=== PATIENT | male | born 1940 | race Caucasian/White ===

== ENCOUNTER → 2017-02-20 | Outpatient (CLI) | payer MEDICARE, OTHER, SELFPAY | PROVIDERS: Visit Provider Internal Medicine | DX: R06.02 Shortness of breath (principal); F17.200 Nicotine dependence, unspecified, uncomplicated | CPT/HCPCS: 71250; 94060; 94620; 94640; 94726; 94729 ==

== ENCOUNTER → 2018-04-29 13:16 | Outpatient (CLI) | payer MEDICARE, OTHER, SELFPAY ==
[2018-04-29 13:42] LABS: Blood Urea Nitrogen 13 mg/dL (7-18); Creatinine,Serum 1.37 mg/dL (0.70-1.30); Estimated Glomerular Filt Rate 50 ml/min (>60); GFR (African American) 61 ML/MIN (>60)
--- NOTE | 2018-04-29 13:50 | CT_ITS ---
CT chest wo/w con HISTORY: ITS.REASON: WEIGHT LOSS,H/O LUNG CA ORDERING PHYSICIAN: Brian Kaba MD PATIENT AGE: 77 years COMPARISON: 02/20/2017 Technique: Axial images obtained following the administration without and with 75 mL of Optiray 350 . Sagittal, and coronal reformatted images are also generated and reviewed. All CT scans at the facility use one or more dose reduction, viz: automated exposure control, ma/kV adjustment per patient size (including targeted exams where dose is matched to indication, i.e. head), or iterative reconstruction technique. FINDINGS: There has been a prior CABG. No mediastinal or hilar mass or adenopathy. Normal heart size without evidence of pericardial effusion. Atheromatous changes involve the thoracic aorta. No evidence of aneurysm or dissection. No central pulmonary embolus There are centrilobular and panlobular emphysematous changes. There are scattered fibrotic changes. There is a spiculated parenchymal opacity in the left apex with associated pleural thickening. This is not significantly changed measuring approximately 15 x 10 mm. No central lesions are evident. No enhancing abnormalities apparent. This nodule has been stable since 01/18/2016.. There is hyperinflation with attenuation of the peripheral pulmonary vessels consistent with obstructive chronic bronchitis. No bony destructive process is evident. Upper abdominal images show prior cholecystectomy. IMPRESSION: 1. Overall no significant change from 02/20/2017 and 01/18/2016. 2. Centrilobular emphysema with COPD. 3. Stable 15 mm left apical nodule
== END ==
PROVIDERS: Visit Provider Internal Medicine Adolescent Medicine
DX: R53.83 Other fatigue (principal); R63.4 Abnormal weight loss; I10 Essential (primary) hypertension; Z85.118 Personal history of other malignant neoplasm of bronchus and lung
CPT/HCPCS: 36415; 71270; 82565; 84520; Q9967

== ENCOUNTER → 2018-05-10 08:52 | Outpatient (CLI) | payer MEDICARE, OTHER, SELFPAY ==
[2018-05-10 10:28] LABS: Basophils # 0.1 K/mm3 (0-0.2); Basophils % 0.6 % (0.1-2.0); Eosinophils # 0.4 K/mm3 (0.0-0.4); Eosinophils % 4.7 % (0.1-12.0); Hematocrit 47.6 % (42.0-52.0); Hemoglobin 15.7 g/dL (14.1-18.0); Lymphocytes # 2.9 K/mm3 (0.7-4.5); Lymphocytes % 36.5 % (10-50); Mean Corpuscular Hemoglobin 31.6 pg (27.0-31.2); Mean Corpuscular Volume 95.6 fl (80-94); Mean Platelet Volume 8.9 fl (7.4-10.4); Monocytes # 0.5 K/mm3 (0.1-1.0); Monocytes % 6.1 % (1.7-9.3); Neutrophils # 4.1 K/mm3 (1.8-7.8); Platelet Count 262 K/mm3 (142-424); Red Blood Count 4.98 M/mm3 (4.60-6.20); Red Cell Distribution Width 13.8 % (11.5-17.5)
[2018-05-10 10:44] LABS: Alanine Aminotransferase 16 U/L (12-78); Albumin Level 3.8 gm/dL (3.4-5.0); Alkaline Phosphatase 118 U/L (46-116); Anion Gap 13.6 mEq/L (5-15); Aspartate Amino Transferase 17 U/L (15-37); Bilirubin,Total 0.5 mg/dL (0.2-1.0); Blood Urea Nitrogen 16 mg/dL (7-18); Calcium 10.3 mg/dL (8.5-10.1); Carbon Dioxide 30 mmol/L (21.0-32.0); Chloride 102 mmol/L (98-107); Chol/HDL Ratio 4.1 (1-3.5); Cholesterol 186 mg/dL (140-200); Creatinine,Serum 1.29 mg/dL (0.70-1.30); Estimated Glomerular Filt Rate 54 ml/min (>60); GFR (African American) 65 ML/MIN (>60); Globulin 3.9 gm/dl (1.3-3.2); Glucose 91 mg/dL (74-106); HDL Cholesterol 45 mg/dL (27-67); LDL Cholesterol 111 mg/dL (0-130); Potassium 4.6 mmoL/L (3.5-5.1); Sodium 141 mmol/L (136-145); Thyroid Stimulating Hormone 2.59 uIU/ml (0.358-3.740); Total Protein,Serum 7.7 gm/dL (6.4-8.2); Triglycerides 151 mg/dL (30-200); VLDL Cholesterol 30 mg/dL (0-40)
== END ==
PROVIDERS: Visit Provider Internal Medicine Adolescent Medicine
DX: R53.83 Other fatigue (principal); E78.5 Hyperlipidemia, unspecified; I10 Essential (primary) hypertension
CPT/HCPCS: 36415; 80053; 80061; 84443; 85025

== ENCOUNTER → 2018-05-11 08:57 | Outpatient (CLI) | payer MEDICARE, OTHER, SELFPAY ==
[2018-05-12 15:16] LABS: Calcium, Ionized 5.8 mg/dL (4.5-5.6)
[2018-05-13 09:20] LABS: Parathyroid Hormone Intact 24 pg/mL (15-65)
[2018-05-25 08:48] LABS: Miscellaneous Test COMMENT:
== END ==
PROVIDERS: Visit Provider Internal Medicine Adolescent Medicine
DX: E83.52 Hypercalcemia (principal)
CPT/HCPCS: 36415; 82330; 83970

== ENCOUNTER → 2019-07-18 13:57 | Outpatient (CLI) | payer MEDICARE, OTHER, SELFPAY ==
--- NOTE | 2019-07-18 14:16 | US_ITS ---
PROCEDURE: US ABD. AORTA SCREENING CLINICAL INDICATION: ABDOMINAL ANEURYSM COMPARISON: ABDPELW CT ABD PELVIS W/ CONTRAST from 01/18/2016 FINDINGS: There is fusiform dilatation the mid abdominal aorta measuring to 4.3 cm in maximum AP dimension. There is a mild amount mural thrombus. Proximal common iliacs are unremarkable. IMPRESSION: 4.3 cm fusiform abdominal aortic aneurysm Dictated by: Андрей Cavazos MD 07/18/2019 14:49 Electronically signed by Андрей Cavazos MD in [facility] 07/18/2019 14:49
[2019-07-18 14:38] LABS: Basophils # 0.1 K/mm3 (0-0.2); Basophils % 0.9 % (0.1-2.0); Eosinophils # 0.4 K/mm3 (0.0-0.4); Eosinophils % 4.8 % (0.1-12.0); Hematocrit 46.7 % (42.0-52.0); Hemoglobin 15.2 g/dL (14.1-18.0); Lymphocytes # 2.4 K/mm3 (0.7-4.5); Lymphocytes % 33.5 % (10-50); Mean Corpuscular HGB Conc 32.5 g/dL (31.8-35.4); Mean Corpuscular Hemoglobin 30.6 pg (27.0-31.2); Mean Platelet Volume 8.4 fl (7.4-10.4); Monocytes # 0.5 K/mm3 (0.1-1.0); Neutrophils # 3.9 K/mm3 (1.8-7.8); Neutrophils % 53.8 % (37.0-80.0); Platelet Count 250 K/mm3 (142-424); Red Blood Count 4.96 M/mm3 (4.60-6.20); Red Cell Distribution Width 13.5 % (11.5-17.5); White Blood Count 7.3 K/mm3 (4.8-10.8)
[2019-07-18 15:21] LABS: Chloride 102 mmol/L (98-107); Sodium 136 mmol/L (136-145)
[2019-07-18 15:24] LABS: Alanine Aminotransferase 9 U/L (12-78); Albumin Level 4.1 g/dl (3.5-5.0); Albumin/Globulin Ratio 1.4 (1.1-1.8); Alkaline Phosphatase 103 U/L (38-126); Aspartate Amino Transferase 21 U/L (17-59); Bilirubin,Total 0.3 mg/dl (0.2-1.3); Blood Urea Nitrogen 15 mg/dl (9-20); Calcium 9.9 mg/dl (8.4-10.2); Carbon Dioxide 30 mmol/L (22.0-30.0); Estimated Glomerular Filt Rate 53 ml/min (>60); GFR (African American) 64 ML/MIN (>60); Glucose 87 mg/dl (74-100); Magnesium 2.1 mg/dl (1.6-2.3); Total Protein,Serum 7.1 g/dl (6.3-8.2)
[2019-07-18 16:52] LABS: Thyroid Stimulating Hormone 1.72 uIU/mL (0.465-4.68)
== END ==
PROVIDERS: Visit Provider Internal Medicine Adolescent Medicine
DX: R53.83 Other fatigue (principal); I71.4 Abdominal aortic aneurysm, without rupture
CPT/HCPCS: 36415; 76705; 80053; 83735; 84443; 85025

== ENCOUNTER → 2019-09-09 13:10 | Outpatient (CLI) | payer MEDICARE, OTHER, SELFPAY ==
[2019-09-09 14:43] LABS: Blood Urea Nitrogen 24 mg/dl (9-20); Estimated Glomerular Filt Rate 64 ml/min (>60); GFR (African American) 78 ML/MIN (>60)
== END ==
PROVIDERS: Visit Provider Internal Medicine Adolescent Medicine
DX: Z01.818 Encounter for other preprocedural examination (principal)
CPT/HCPCS: 36415; 82565; 84520

== ENCOUNTER → 2019-09-12 12:29 | Outpatient (CLI) | payer MEDICARE, OTHER, SELFPAY ==
--- NOTE | 2019-09-12 12:37 | CT_ITS ---
PROCEDURE: CT CHEST W CON CLINCAL INDICATION: HX OF MALIGNANT NEOPLASM OF LUNG Follow-up lung cancer COMPARISON: ABDPELW CT ABD PELVIS W/ CONTRAST from 01/18/[address] chest wo/w con from 04/29/2018 the dimensions of the aneurysm or therefore not available from this exam the TECHNIQUE: IV Contrast: 75ml Optiray 350 Axial images obtained with sagittal and coronal reformats. All CT scans at the facility use one or more dose reduction, viz: automated exposure control, ma/kV adjustment per patient size (including targeted exams where dose is matched to indication, i.e. head), or iterative reconstruction technique. FINDINGS: Prior CABG. No mediastinal or hilar mass or adenopathy. Changes of COPD with diffuse centrilobular and paraseptal emphysema. The there is a spiculated nodule in the left upper lobe posteriorly subpleural in nature with minimal central cavitation. The nodule measures 16 mm not significantly changed. There are fibrotic changes in the lung bases with scattered areas of scarring. There is some debris within the trachea. Right hemidiaphragm is slightly elevated. Degenerative changes are present in the thoracic spine with no acute bony findings. 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 There is a fusiform abdominal aortic aneurysm. Only the superior aspect of the aneurysm is imaged. IMPRESSION: Overall stable CT appearance of the chest with severe COPD/is centrilobular and paraseptal emphysema. No change in the spiculated left apical nodule Dictated by: Андрей Cavazos MD 09/13/2019 13:13 Electronically signed by Андрей Cavazos MD in [facility] 09/13/2019 13:13
== END ==
PROVIDERS: PCP Internal Medicine Adolescent Medicine; Visit Provider Internal Medicine Adolescent Medicine
DX: Z85.118 Personal history of other malignant neoplasm of bronchus and lung (principal)
CPT/HCPCS: 71260; Q9967

== ENCOUNTER → 2019-09-29 08:35 | Outpatient (CLI) | payer MEDICARE, OTHER, SELFPAY ==
--- NOTE | 2019-09-29 08:47 | MR_ITS ---
PROCEDURE: MR HEAD/BRAIN WO/W CON CLINICAL INDICATION: VERTIGO Weakness, history of lung cancer COMPARISON: No exams were available for comparison TECHNIQUE: Routine multiplanar multi echo sequences are performed without gadolinium enhancement. FINDINGS: No midline shift, mass effect, intracranial hemorrhage, or hydrocephalus is evident. There is generalized atrophy with scattered areas of increased periventricular and subcortical T2 signal intensity consistent with ischemic gliotic change from microvascular disease. There is a small focus of increased diffusion signal measuring approximately 4 mm in the deep white matter of the left frontal parietal junction suggesting a small area of infarction. There is some slight increased diffusion signal in the left white matter in the periventricular region also suggesting a small area of white matter infarction. These are isointense on the diffusion signal in may be subacute in nature. Some of these areas may also be related to T2 shine through. The cerebellopontine angle has an unremarkable appearance. There is a small area of encephalomalacia in the right cerebellar hemisphere inferiorly suggesting an old small infarction. No enhancing lesions. No midline shift or mass effect. Encephalomalacia changes are present in the basal ganglia on both sides consistent with old small bilateral lacunar infarctions. This is slightly more extensive on the right. The pituitary and optic chiasm and craniocervical junction have an unremarkable appearance. There is an area of encephalomalacia in the anterior left aspect of the body of the corpus callosum hypointense on T1 and slightly hyperintense on T2 suggesting an old area of lacunar infarction. Mucosal thickening involves the ethmoid sinuses and there is a small amount of fluid in the mastoid sinuses. IMPRESSION: 1. Atrophy with chronic ischemic gliotic changes as detailed above with suspected 2 small areas of subacute white matter infarction in the left frontal parietal and left parietal region. 2. Mild sinus disease Dictated by: Андрей Cavazos MD 09/30/2019 09:16 Electronically signed by Андрей Cavazos MD in [facility] 09/30/2019 09:16
[2019-09-29 08:57] LABS: Blood Urea Nitrogen 11 mg/dl (9-20); Estimated Glomerular Filt Rate 58 ml/min (>60); GFR (African American) 70 ML/MIN (>60)
== END ==
PROVIDERS: PCP Internal Medicine Adolescent Medicine; Visit Provider Internal Medicine Adolescent Medicine
DX: R42 Dizziness and giddiness (principal)
CPT/HCPCS: 36415; 70553; 82565; 84520; A9576

== ENCOUNTER → 2019-10-31 12:34 | Outpatient (CLI) | payer MEDICARE, OTHER, SELFPAY ==
--- NOTE | 2019-10-31 | US_ITS ---
APPROVED REPORT Exam Type: Ankle to Brachial Index Process Steward: RT Tonya(R) Indications Claudication: Risk Factors Cardiac Disease Current Smoker Pressures/Indices Right Indices Left Indices Brachial 159.00 mmHg Brachial 159.00 mmHg Low Thigh 159.00 mmHg 1.00 Low Thigh 132.00 mmHg 0.83 Calf 159.00 mmHg 1.00 Calf 97.00 mmHg 0.61 Ankle(PT) 154.00 mmHg 0.97 Ankle(PT) 97.00 mmHg 0.61 Ankle(DP) 151.00 mmHg 0.95 Ankle(DP) 90.00 mmHg 0.57 Digit 68.00 mmHg 0.43 Digit 64.00 mmHg 0.40 Findings R AGUSTIN 1.0 L AGUSTIN 0.4 R TBI 0.4 L TBI 0.4 ABNORMAL WAVEFORMS AND DIMINISHED PULSES ON LEFT Conclusion R AGUSTIN 1.0 L AGUSTIN 0.4 R TBI 0.4 L TBI 0.4 ABNORMAL WAVEFORMS AND DIMINISHED PULSES ON LEFT Severe arterial disease on the left with bilat small vessel disease Electronically signed by : Андрей Cavazos MD 10/31/2019 17:02:20
== END ==
PROVIDERS: PCP Internal Medicine Adolescent Medicine; Visit Provider Internal Medicine Adolescent Medicine
DX: I73.9 Peripheral vascular disease, unspecified (principal)
CPT/HCPCS: 93923

== ENCOUNTER 2020-06-04 20:49 | Emergency (ER) | payer MEDICARE, OTHER, SELFPAY ==
[2020-06-04 20:49] VITALS: BP 159/94; PULSE 89; RESP 16; TEMP 36.9; O2SAT 99; BMI 22.3
[2020-06-04 21:06] VITALS: BP 157/90; PULSE 70; RESP 16; O2SAT 98
--- NOTE | 2020-06-04 21:06 | CT_ITS ---
PROCEDURE: CT ABDOMEN PELVIS W CON CLINICAL INDICATION: abd pain Constipation, history of lung cancer COMPARISON: CT ABDPELW CT ABD PELVIS W/ CONTRAST from 01/18/2016 TECHNIQUE: IV Contrast: 75ML Isovue 370 Oral Contrast None Axial images obtained with sagittal and coronal reformats. All CT scans at the facility use one or more dose reduction, viz: automated exposure control, ma/kV adjustment per patient size (including targeted exams where dose is matched to indication, i.e. head), or iterative reconstruction technique. FINDINGS: LOWER THORAX: COPD with scattered areas of scarring. ABDOMEN & PELVIS: Prior cholecystectomy. No focal liver lesion. The spleen, adrenal glands, and pancreas have an unremarkable appearance. No renal or ureteral calculi. There are small bilateral renal cysts. No hydronephrosis. There is a fusiform infrarenal abdominal aortic aneurysm measuring 5.3 cm in maximum transverse dimension. This includes a saccular component along the left lateral aspect which measures approximately 2 cm in with. The saccular component has developed since the previous exam of 01/18/2016 concerning for impending rupture. No acute retroperitoneal hemorrhage evident at this time. The aorta measures 4.9 cm transverse without including the saccular component. There is a mild amount of intramural thrombus. There is rectal fecal impaction with the rectum measuring 7.6 cm transverse. There is large amount of stool burden in the descending and sigmoid colon and rectosigmoid region. Air-fluid levels are present within the cecum ascending colon and transverse colon. There is mild colonic distension of the ascending colon measuring up to 8 cm transverse. High-grade stenosis is present involving the ostium of the celiac artery. This stenosis is at least 90 percent with possible short segment occlusion. At least 50 percent stenosis of the proximal SMA. No acute bony findings. IMPRESSION: 1. Constipation with rectal fecal impaction. 2. Infrarenal fusiform abdominal aortic aneurysm measuring 4.9 cm with moderate intramural thrombus with an associated saccular component along the left lateral aspect at approximately 2 cm. This is concerning for impending rupture. No acute retroperitoneal hemorrhage evident at this time. 3. 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 At least 50 percent stenosis of the proximal SMA Dictated by: Андрей Cvaazos MD 06/05/2020 06:14 Андрей Cavazos MD in [facility] 06/05/2020 06:14
[2020-06-04 21:32] LABS: Basophils # 0.1 K/mm3 (0-0.2); Basophils % 0.6 % (0.1-2.0); Eosinophils # 0.3 K/mm3 (0.0-0.4); Eosinophils % 3.3 % (0.1-12.0); Hematocrit 48.1 % (42.0-52.0); Hemoglobin 15.4 g/dL (14.1-18.0); Lymphocytes # 1.3 K/mm3 (0.7-4.5); Lymphocytes % 15.2 % (10-50); Mean Corpuscular Hemoglobin 31.4 pg (27.0-31.2); Mean Corpuscular Volume 98.3 fl (80-94); Mean Platelet Volume 8.5 fl (7.4-10.4); Monocytes # 0.4 K/mm3 (0.1-1.0); Monocytes % 4.1 % (1.7-9.3); Neutrophils # 6.5 K/mm3 (1.8-7.8); Neutrophils % 76.9 % (37.0-80.0); Platelet Count 236 K/mm3 (142-424); Red Blood Count 4.89 M/mm3 (4.60-6.20); Red Cell Distribution Width 13.6 % (11.5-17.5); White Blood Count 8.4 K/mm3 (4.8-10.8)
[2020-06-04 21:34] LABS: Chloride 104 mmol/L (98-107)
[2020-06-04 21:35] LABS: Potassium 4.3 mmoL/L (3.5-5.1); Sodium 140 mmol/L (136-145)
[2020-06-04 21:37] LABS: Alanine Aminotransferase 44 U/L (12-78); Aspartate Amino Transferase 56 U/L (17-59); Blood Urea Nitrogen 16 mg/dl (9-20); Creatinine Clearance Estimated 50 mL/min (50-200); Estimated Glomerular Filt Rate 58 ml/min (>60); GFR (African American) 70 ML/MIN (>60)
[2020-06-04 21:38] LABS: Albumin Level 4.5 g/dl (3.5-5.0); Albumin/Globulin Ratio 1.5 (1.1-1.8); Alkaline Phosphatase 118 U/L (38-126); Anion Gap 10.3 mEq/L (5-15); Bilirubin,Total 0.4 mg/dl (0.2-1.3); Calcium 10.4 mg/dl (8.4-10.2); Carbon Dioxide 30 mmol/L (22.0-30.0); Glucose 146 mg/dl (74-100); Total Protein,Serum 7.5 g/dl (6.3-8.2)
[2020-06-04 21:43] LABS: C-Reactive Protein 2.4 mg/L (0-4)
[2020-06-04 21:57] LABS: Procalcitonin 0.085 ng/mL (0.0-2.0)
--- NOTE | 2020-06-04 22:15 | HMH.EDNVD ---
ED Disposition Clinical Impression: Abdominal aortic aneurysm (AAA) 3.0 cm to 5.5 cm in diameter in male, Fecal impaction in rectum Disposition: Xfer Short-Term Hosp Condition on Discharge: Serious Instructions: DI for Acute Abdominal Pain Referrals: Brian Kaba MD [Primary Care Provider] - - Critical Care Critical Care Time: No Attestation: On 06/04/20, the high probability of a clinically significant, sudden or life threatening deterioration of the following system(s) required my full and direct attention, intervention and personal management. The time I documented below is in addition to time spent performing reported procedures but includes the following listed in this critical care notation. Medical Decision Making - Medical Records Medical records reviewed: Yes: I reviewed the patient's medical records. - Dante Inquiry Pt receiving controlled substance: No Vital Signs: 06/04/20 20:49 06/04/20 21:06 Temperature 98.4 F Temperature Source Oral Pulse Rate 70 Pulse Rate [Right] 89 Respiratory Rate 16 16 Blood Pressure 157/90 H Blood Pressure [Right Arm] 159/94 H Blood Pressure Mean [Right Arm] 115 Blood Pressure Source Manual Cuff/ Doppler Blood Pressure Position Sitting 02 Sat by Pulse Oximetry 99 98 Oxygen Delivery Method Room Air - Lab Data Lab results reviewed: Yes: I reviewed the patient's lab results. Lab Results 06/04/20 21:12: WBC 8.4, RBC 4.89, Hgb 15.4, Hct 48.1, MCV 98.3 H, MCH 31.4 H, MCHC 32.0, RDW 13.6, Plt Count 236, MPV 8.5, Neut % (Auto) 76.9, Lymph % (Auto) 15.2, Lewis % (Auto) 4.1, Eos % (Auto) 3.3, Baso % (Auto) 0.6, Neut # (Auto) 6.5, Lymph # (Auto) 1.3, Lewis # (Auto) 0.4, Eos # (Auto) 0.3, Baso # (Auto) 0.1, ESR 24 H 06/04/20 21:12: Sodium 140, Potassium 4.3, Chloride 104, Carbon Dioxide 30, Anion Gap 10.3, BUN 16, Creatinine 1.20, Estimated Creat Clear 50, Estimated GFR 58 L, Est GFR ( Amer) 70, Glucose 146 H, Calcium 10.4 H, Total Bilirubin 0.4, AST 56, ALT 44, Alkaline Phosphatase 118, C-Reactive Protein 2.4, Total Protein 7.5, Albumin 4.5, Globulin 3.0, Albumin/Globulin Ratio 1.5, Procalcitonin 0.085 06/04/20 21:20: TSH 3.66, Thyroxine (T4) 10.4 Result diagrams: 06/04/20 21:12 06/04/20 21:12 Orders (Tests/Meds): ED MEDICATIONS Generic Name Dose Route Start Last Admin Trade Name Freq PRN Reason Stop Dose Admin Sodium Chloride 1,000 mls @ 999 mls/hr 06/04/20 21:15 06/04/20 21:28 Sod Chlor 0.9% 1000ml Bag IV 06/04/20 22:15 999 mls/hr .Q1H1M PEDRO Administration Discontinued Medications Generic Name Dose Route Start Last Admin Trade Name Freq PRN Reason Stop Dose Admin Iopamidol 75 ml 06/04/20 23:47 06/04/20 23:48 Iopamidol-370 (76%);100ml Bottle IV 06/04/20 23:48 75 ml ONCE ONE Administration Ketorolac Tromethamine 15 mg 06/04/20 21:23 06/04/20 21:28 Ketorolac 30mg/Ml Vial IV 06/04/20 21:24 15 mg ONCE ONE Administration Ondansetron HCl 4 mg 06/04/20 21:23 06/04/20 21:28 Ondansetron 4mg/2ml Vial IV 06/04/20 21:24 4 mg ONCE ONE Administration Sodium Chloride 10 ml 06/04/20 23:47 06/04/20 23:48 Sodium Chloride 0.9% 10ml Syr (Rad Only) IV 06/04/20 23:48 10 ml ONCE ONE Administration ORDERS Category Date Time Status CT abdomen pelvis w con Stat Cat Scan 06/04/20 21:06 Taken Urinalysis and Microscopic Stat Lab 06/04/20 21:15 Ordered - CT Data CT Scan: Abdomen, Pelvis Time Received: 00:[address] Reviewed: Yes: I have viewed the radiologist's interpretation Preliminary Findings: Abnormal (see report ) - Physician Consults Physician Consulted: [facility] - dr rutledge and [facility]- surg Reason -: Transfer to another facilty Medical Decision Narrative: enlarging aaa with not tender on palpation but positive bruit and enlarged and saccular element - will need eval by c-v Nausea/Vomiting/Diarrhea HPI - General Chief complaint: Abdominal Pain Stated complaint: constipation Time Seen by
[2020-06-04 22:28] LABS: Erythrocyte Sedimentation Rate 24 mm/hr (0-20)
--- NOTE | 2020-06-04 22:32 | PC.NURSE ---
speaking gamaliel BELLE
[2020-06-04 23:29] LABS: T4 (Thyroxine) 10.4 ug/dl (5.53-11.0)
[2020-06-04 23:42] LABS: Thyroid Stimulating Hormone 3.66 uIU/mL (0.465-4.68)
--- NOTE | 2020-06-04 23:57 | PC.NURSE ---
Calling [facility]
--- NOTE | 2020-06-05 00:04 | PC.NURSE ---
speaking with [facility]
--- NOTE | 2020-06-05 00:20 | PC.NURSE ---
Notified Alda of transfer
[2020-06-05 00:47] VITALS: BP 128/83; PULSE 87; RESP 16; TEMP 36.8; O2SAT 98
== END 2020-06-05 00:49 | disposition short-term general hospital (02) ==
PROVIDERS: Emergency Provider Emergency Medicine; PCP Internal Medicine Adolescent Medicine
DX: K56.41 Fecal impaction (principal); I71.4 Abdominal aortic aneurysm, without rupture; K59.00 Constipation, unspecified; F17.210 Nicotine dependence, cigarettes, uncomplicated
CPT/HCPCS: 74177; 80053; 84145; 84436; 84443; 85025; 85651; 86140; 96375; 99283; J2405; Q9967

== ENCOUNTER → 2020-06-27 11:09 | Outpatient (CLI) | payer MEDICARE, OTHER, SELFPAY ==
--- NOTE | 2020-06-27 11:15 | CA_ITS ---
APPROVED REPORT Spring Former Hand: Amy Bertrand RVT Laterality: Bilateral Study Quality: Good Indications: left carotid bruit Risk Factors Hypertension: TIA/CVA History Hyperlipidemia Smoking Surgery/Intervention Endarterectomy: right left Doppler Spectral Velocity Analysis ECA (R) 111.10/10.90 cm/s ECA (L) 193.50/33.30 cm/s dICA (R) 98.90/39.80 cm/s dICA (L) 61.00/23.10 cm/s Maged (R) 94.40/37.20 cm/s Maged (L) 210.30/76.60 cm/s pICA (R) 80.90/31.50 cm/s pICA (L) 143.40/20.00 cm/s dCCA (R) 85.30/25.40 cm/s dCCA (L) 77.10/17.30 cm/s pCCA (R) 101.10/25.70 cm/s pCCA (L) 98.20/19.30 cm/s Vert (R) 63.60/18.60 cm/s Vert (L) 70.60/7.10 cm/s ICA/CCA 1.16 ICA/CCA 2.73 Findings Study suggests no evidence of stenosis of the right internal cartoid artery. 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 Antegrade flow seen bilateral vertebral arteries. Conclusion Study suggests no evidence of stenosis of the right internal cartoid artery. 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 Antegrade flow seen bilateral vertebral arteries. Electronically signed by : Андрей Cavazos MD 06/27/2020 15:33:08
--- NOTE | 2020-06-27 11:15 | CA_ITS ---
APPROVED REPORT EXAM: Comprehensive 2D, Doppler, and color-flow Echocardiogram Agricultural Production Engineer: LAUREL Grey, RVS Ht: 5 ft 11 in Wt: 138lbs BSA: 1.80 BP: 136/75 mmHg Indications: CAD-CaBG, AAA, Lung CA, TIA, stent Echo Enhancing Agent Comments: Limited acoustic windows due to extreme body habitus 2D Dimensions IVSd 0.97 cm LVEF (Visual) 66.40 % PWd 0.87 cm LA Volume 23.10 mL LVDd 4.39 cm LA Volume Index 12.80 mL/m2 (M/F) 16-34 LVDs 2.79 cm Aortic Root 3.20 cm Left Atrium 3.48 cm LVOT 1.94 cm (M/F) 1.5-2.5 M-Mode Dimensions EPSs 0.17 cm TAPSE 1.45 (<1.7) LV Diastology E Decel Time 257.00 (160-240 msec) E/A Ratio 0.82 MED E' 6.50 (< 7 cm/sec) MED A' 10.60 cm/s E'/MED E' Ratio 8.23 (>14) LAT E' 6.60 (<10 cm/sec) LAT A' 10.50 cm/s E/LAT E' Ratio 8.11 (>14) Aortic Valve LVOT Max 81.00 (70-110 cm/s) LVOT VTI 16.07 cm AoV Peak Abel. 124.00 (50-130 cm/s) AO Peak GR. 6.20 mmHg AO Mean GR. 3.10 (<5 mmHg) AO VTI 22.08 (18-25 cm) ADAMS (VTI) 2.15 (2.5-4.5 cm2) Mitral Valve MV A Velocity 65.00 (40-130 cm/s) E/A Ratio 0.82 MV Decel. Time 257.00 (160-240 ms) Pulmonary Valve PV Peak Velocity 75.00 (50-150 cm/s) Tricuspid Valve TR P. Velocity 271.00 cm/s RAP Estimate 10.00 mmHg RVSP 39.40 mmHg Left Ventricle Left atrium is moderately enlarged, left ventricle is normal size, mild concentric left ventricular hypertrophy, visually estimated ejection fraction 50%, there is moderate hypokinesis involving distal septum and apical wall, grade 1 diastolic dysfunction seen without tissue Doppler evidence of raise left atrial pressure. Right Ventricle Right atrium and right ventricle are normal size and contractility. Aortic Valve Aortic valve is minimally thickened and fibrosed, there is no aortic stenosis or aortic insufficiency. Mitral Valve Mitral valve leaflets are minimally thickened, there is mild mitral regurgitation Tricuspid Valve Tricuspid grossly normal, there is trace tricuspid regurgitation. Pulmonic Valve Pulmonic valve is poorly visualized. Great Vessels Aortic root is normal size. Pericardium No significant pericardial effusion noted. Conclusion 1. Moderately enlarged left atrium, normal left ventricular size, mild concentric left ventricular hypertrophy, visually estimated ejection fraction 50% with segmental wall motion abnormalities described above, grade 1 diastolic dysfunction seen without tissue Doppler evidence of raise left atrial pressure. 2. Mild mitral and trace tricuspid regurgitation. 3. No significant pericardial effusion noted. Electronically signed by : Ruperto Baeza, 06/28/2020 15:15:29
--- NOTE | 2020-06-27 11:29 | NM_ITS ---
APPROVED REPORT Exam: Nuclear Stress Test Indication: CAD, CABG, HTN, HYPERLIPIDEMIA, SOB Patient Location: Outpatient Stress Tech: Neva Hernandez [place] Tech:TEVIN Falcon RT(R)(N) Ht: 5 ft 9 in Wt: 135 lbs HR: 77 bpm BP: 158/77 mmHg BSA: 1.75 m2 BMI: 19.9 History: CAD, CABG, HTN, HYPERLIPIDEMIA, SOB Procedure: Patient received a 0.4 mg of intravenous Lexiscan, resting heart rate 77 bpm, resting blood pressure 158/98 mmHg, with Lexiscan maximum heart rate achived was 93 bpm which is Less than 85 % of the maximum predicted heart rate and blood pressure was 138/83 mmHg. With Lexiscan, patient denied any complaint of chest pain. OCC PAC, RARE PVC Electrocardiogram Resting electrocardiogram showed sinus rhythm, with Lexiscan there is less than 1.[address] segment depression noted from the baseline EKG. The EKG portion of the Lexiscan is nondiagnostic. Cardiac Stress and Resting SPECT Images: Cardiac Stress and Resting SPECT images were obtained using technetium 99m Myoview 32.4 mCi stress and 10.23 mCi at rest. Gated SPECT for analysis of segmental wall motion and calculation of the ejection fraction also done, prone images were also obtained. Cardiac stress and resting SPECT images show a small to moderate sized area of fixed defect involving the distal anterior apical and apical wall consistent with area of prior nontransmural myocardial scarring without significant shauna-infarct ischemia. Computer derived ejection fraction is 49% with moderate distal anterior and apical wall hypokinesis. Right ventricle is normal size and contractility. Conclusion: 1. The EKG portion of the Lexiscan is nondiagnostic. 2. Scintigraphic evidence of nontransmural myocardial scarring involving the distal anterior apical wall without significant shauna-infarct ischemia, computer derived ejection fraction is 49% with moderate distal anterior and apical wall hypokinesis, right ventricle is normal size and contractility. 3. Abnormal Lexiscan Myoview study. Electronically signed by : Ruperto Baeza, 06/29/2020 10:10:34
--- NOTE | 2020-06-27 13:55 | CA_ITS ---
APPROVED REPORT Exam: Pharmacologic Technologist: Neva Hernandez, Ht: 5 ft 11 in Wt: 138 lbs BSA: 1.80 m2 HR: 77 bpm BP: 158/98 mmHg Indications: SOA Medical History Medications: Amlodipine,,,,, Omeprazole,,,,, Aspirin,,,,, Atorvastatin,,,,, Tramadol,,,,, Vitamin B Complex,,,,, VitD3,,,,, CiLostazol,,,,, Stress Test Details Test: LEXISCAN HR Resting HR: 79 bpm Max Heart Rate (APMHR): 139.990393 bpm Max HR Achieved: 96 bpm Target HR (85% APMHR): 118.004218 bpm % of APMHR: 69.06 Recovery HR: 91 bpm BP Resting BP: 158/98 mmHg Max BP: 161/90 mmHg Recovery BP: 160.0/82.0 mmHg ECG Resting ECG: NSR, small inferolateral Q waves, Left atrial enlargement, early repolarization changes. Clinical Exercise duration: 04:11 min Highest Stage Achieved: Stress ECG Conclusion Symptoms: SOA, stomach discomfort. Arrhythmias/Ectopy: Occ PAC, rare PVC. ST-T Changes: No significant changes. Conclusion: Unremarkable Lexiscan stress. Myoview images reported separately. Test Summary REST 03:54 . . 79 . 158/ 98 . . Stage 1 . . . . . . . Myoview Injected Stage 1 01:00 . . 81 . . . . Stage 2 01:00 . . 94 . 138/ 83 . . Stage 3 01:00 . . 94 . 141/ 85 . . Stage 4 01:00 . . 94 . 161/ 90 . . Stage 4 01:11 . . 93 . 161/ 90 . Stop exercise at 04:11 RECOVERY 01:00 . . 93 . . . . RECOVERY 02:00 . . 91 . 151/ 88 . . RECOVERY 03:00 . . 91 . 160/ 82 . . RECOVERY 03:21 . . 91 . 160/ 82 . . Electronically signed by : Ruperto Baeza, 06/28/2020 11:03:14
== END ==
PROVIDERS: PCP Internal Medicine Adolescent Medicine; Visit Provider Nurse Practitioner Family
DX: I65.23 Occlusion and stenosis of bilateral carotid arteries (principal); R09.89 Other specified symptoms and signs involving the circulatory and respiratory systems; Z98.890 Other specified postprocedural states; E78.5 Hyperlipidemia, unspecified; F17.200 Nicotine dependence, unspecified, uncomplicated; I10 Essential (primary) hypertension; I25.10 Atherosclerotic heart disease of native coronary artery without angina pectoris; I71.4 Abdominal aortic aneurysm, without rupture; I73.9 Peripheral vascular disease, unspecified; I77.4 Celiac artery compression syndrome; K55.1 Chronic vascular disorders of intestine; R63.4 Abnormal weight loss; Z85.118 Personal history of other malignant neoplasm of bronchus and lung; Z86.73 Personal history of transient ischemic attack (TIA), and cerebral infarction without residual deficits; Z95.1 Presence of aortocoronary bypass graft; Z95.5 Presence of coronary angioplasty implant and graft; R06.00 Dyspnea, unspecified
CPT/HCPCS: 78452; 93017; 93306; 93880; A9502; J2785

== ENCOUNTER → 2020-07-09 10:38 | Outpatient (CLI) | payer MEDICARE, OTHER, SELFPAY ==
[2020-07-09 11:22] LABS: Basophils # 0.1 K/mm3 (0-0.2); Basophils % 0.6 % (0.1-2.0); Eosinophils # 0.5 K/mm3 (0.0-0.4); Eosinophils % 5.5 % (0.1-12.0); Hematocrit 43.7 % (42.0-52.0); Hemoglobin 14.5 g/dL (14.1-18.0); Lymphocytes # 2.4 K/mm3 (0.7-4.5); Lymphocytes % 28.6 % (10-50); Mean Corpuscular HGB Conc 33.2 g/dL (31.8-35.4); Mean Corpuscular Hemoglobin 32.5 pg (27.0-31.2); Monocytes # 0.5 K/mm3 (0.1-1.0); Monocytes % 5.6 % (1.7-9.3); Neutrophils % 59.7 % (37.0-80.0); Platelet Count 322 K/mm3 (142-424); Red Blood Count 4.46 M/mm3 (4.60-6.20); Red Cell Distribution Width 13.7 % (11.5-17.5); White Blood Count 8.5 K/mm3 (4.8-10.8)
[2020-07-09 12:04] LABS: Chloride 103 mmol/L (98-107); Potassium 4.5 mmoL/L (3.5-5.1); Sodium 140 mmol/L (136-145)
[2020-07-09 12:07] LABS: Anion Gap 10.5 mEq/L (5-15); Blood Urea Nitrogen 16 mg/dl (9-20); Calcium 10.4 mg/dl (8.4-10.2); Carbon Dioxide 31 mmol/L (22.0-30.0); Estimated Glomerular Filt Rate 64 ml/min (>60); GFR (African American) 78 ML/MIN (>60); Glucose 93 mg/dl (74-100)
== END ==
PROVIDERS: PCP Internal Medicine Adolescent Medicine; Visit Provider Nurse Practitioner Family
DX: I65.23 Occlusion and stenosis of bilateral carotid arteries; Z01.818 Encounter for other preprocedural examination; Z20.822 Contact with and (suspected) exposure to COVID-19; I20.8 Other forms of angina pectoris
CPT/HCPCS: 80048; 85025; U0003

== ENCOUNTER 2020-07-11 08:06 | Day surgery (SDC) | payer MEDICARE, OTHER, SELFPAY ==
[2020-07-11] VITALS (20 sets, daily range): BP systolic 117–163; BP diastolic 72–95; PULSE 60–84; RESP 12–19; TEMP 36.5–36.8; O2SAT 92–100; BMI 19.2
--- NOTE | 2020-07-11 | IR_ITS ---
APPROVED REPORT Patient Location: Outpatient Ore Digger: TEVIN Rothman RT (R) PROCEDURES Left heart catheterization Left ventriculogram Selective coronary angiogram Left internal mammary angiography Selective engagement of the saphenous vein graft to the diagonal artery Selective gating the saphenous vein graft to circumflex artery Selective engagement of the saphenous vein graft to the right coronary Drug-eluting stent deployment to the nondalton circumflex artery Catheter placed in the abdominal aorta Abdominal aortography Repositioning the catheter abdominal aorta Bilateral iliofemoral runoff Stent deployment to the right common iliac artery Stent deployment to the left common iliac artery Stent deployment to the left external iliac artery INDICATION Coronary disease, Angina pectoris, History of coronary bypass surgery, Peripheral artery disease, Abnormal AGUSTIN, [place] class III claudication, Informed consent was obtained prior to the procedure. COMPLICATIONS NONE Estimated Blood Loss: LESS THAN 10 ML TECHNIQUE One percent lidocaine used to anesthetize the right groin. The right femoral artery was accessed via the Seldinger technique and a 5 Stateless sheath was placed in the right femoral artery. A JL 4, JR4 catheter were used to perform left heart catheterization, left ventriculogram selective coronary angiography as well as selective engagement of the 3 vein grafts and the left internal mammary artery. In the diagnostic procedure 5 Stateless sheath exchanged for a 6 Stateless sheath and therapeutic heparin was administered. A JL 3 guide catheter was placed in the left main artery and a Choice PT extra-support wire was placed distally in the circumflex artery. A 2 mm x 12 mm resolute Hinton stent was deployed at 20 mer reducing the severe stenosis to 10%. Excellent angiographic results were obtained. Following this mini exchange techniques were utilized throughout exchange of catheters etc. Pigtail catheter was placed in abdominal aorta and abdominal aortography was performed. The catheter was then repositioned and bilateral iliofemoral angiography with bilateral runoff to the feet was then performed. An 8 mm x 80 mm self-expanding stent was then placed in the right common iliac artery extending back into the right external iliac artery. A 9 mm x 40 mm balloon was used to post dilate. The balloon was deployed at 10 mer giving excellent angiographic results. At this point a rim catheter was advanced into the distal abdominal aorta and the advantage wire was advanced distally into the profunda femoris under fluoroscopic guidance. The plan was to proceed with antegrade stenting of the left common iliac artery. A long destination sheath was then advanced into the right groin and into the abdominal aorta. Unfortunately the sheath moved the stent in a cranial manner into the abdominal aorta. At this point it was decided to proceed with left groin access. 1% lidocaine was used to anesthetize the left groin and the left femoral artery was accessed via the Salinger technique. A 6 Stateless sheath was placed in the left femoral artery. An 8 mm x 80 mm self-expanding stent was deployed in the left common iliac artery. No residual stenosis was present distally therefore an 8 mm x 17 mm balloon mounted stent was deployed at 20 mer to post dilate. Prior to the balloon mounted stent a 9 mm x 40 mm balloon was deployed at 6 mer up and down the left common iliac artery. Post angiography demonstrated the stent in the distal abdominal aorta however there was excellent flow with improved inflow through the bilateral iliac arteries. At this point the apparatus was removed the left groin was reprepped gloves were changed sh
[2020-07-11 14:06] LABS: Microscopic, Urine URINE MICROSCOPIC (MICROSCOPIC)
[2020-07-11 14:10] LABS: Appearance,Urine CLEAR (Clear); Bilirubin,Urine Negative (Negative); Blood, Urine 3+ (Negative); Color,Urine YELLOW (Yellow); Glucose,Urine (UA) Negative (Negative); Ketones,Urine Negative (Negative); Leukocyte Esterase,Urine Negative (Negative); Nitrate,Urine Negative (Negative); Protein,Urine Negative (Negative); Specific Gravity, Urine <= 1.005 (1.005-1.030); Urobilinogen,Urine 0.2 EU/dl (0.2)
[2020-07-11 14:23] LABS: CATHL Activated Clotting Time 172 SEC (74-125)
[2020-07-11 14:24] LABS: CATHL Activated Clotting Time 333 SEC (74-125)
[2020-07-11 14:25] LABS: CATHL Activated Clotting Time 255 SEC (74-125)
--- NOTE | 2020-07-11 18:20 | PC.NURSE ---
Pt alert and oriented and able to make needs known, but does require frequent redirection. Pt has been instructed to lie flat post heart cath to avoid bleeding in marcio groin sites, small amt of blood on L groin site, that is unchanged since coming up from agriculture laboratory technician. No further bleeding noted. Pt verbs understanding, but has got out of bed x 2 and attempted to go to bathroom, stating he has to urinate. This RN explained to pt to continue to lie flat and a catheter is in,when he got up once cath pulled taut. Coello is draining well and urine is light yellow. Bed alarm is on and working for safety. CB in reach. VSS. Mx continues.
[2020-07-12] VITALS: BP 122/52; PULSE 60; PULSE 68; RESP 16; TEMP 36.9; O2SAT 95
[2020-07-12 04:00] VITALS: PULSE 70
[2020-07-12 04:02] VITALS: BP 143/77; PULSE 73; RESP 16; TEMP 36.9
[2020-07-12 05:01] VITALS: BMI 18.2
--- NOTE | 2020-07-12 05:19 | PC.NURSE ---
A&OX4. PT TOLERATING RA WELL. PT HAS HAD NO C/O PAIN OR SOA THIS SHIFT. BILATERAL FEMORAL CATH SITE DX CDI. F/C PRESENT DRAINING BRIGHT YELLOW URINE. PT HAD X1 EPISODE OF DIARRHEA THIS SHIFT. WALKING TO THE BATHROOM WELL WITH X1 ASSIST. PT NSR ON TELE. PT HAS BEEN SLIGHTLY ANXIOUS T/O SHIFT, WORRIED ABOUT HIS AT HOME AND ANXIOUS TO LEAVE. PT RESTING MAJORITY OF SHIFT. VSS WILL CONTINUE TO MONITOR.
[2020-07-12 06:46] LABS: Basophils % 0.4 % (0.1-2.0); Eosinophils # 0.1 K/mm3 (0.0-0.4); Eosinophils % 0.9 % (0.1-12.0); Hematocrit 42.4 % (42.0-52.0); Hemoglobin 13.8 g/dL (14.1-18.0); Lymphocytes # 2.1 K/mm3 (0.7-4.5); Lymphocytes % 17.5 % (10-50); Mean Corpuscular HGB Conc 32.6 g/dL (31.8-35.4); Mean Corpuscular Hemoglobin 31.6 pg (27.0-31.2); Mean Corpuscular Volume 96.9 fl (80-94); Mean Platelet Volume 8.5 fl (7.4-10.4); Monocytes # 0.8 K/mm3 (0.1-1.0); Monocytes % 6.8 % (1.7-9.3); Neutrophils # 8.9 K/mm3 (1.8-7.8); Neutrophils % 74.5 % (37.0-80.0); Platelet Count 282 K/mm3 (142-424); Red Blood Count 4.38 M/mm3 (4.60-6.20); Red Cell Distribution Width 13.6 % (11.5-17.5); White Blood Count 11.9 K/mm3 (4.8-10.8)
[2020-07-12 07:01] LABS: Anion Gap 8.7 mEq/L (5-15); Blood Urea Nitrogen 19 mg/dl (9-20); Calcium 9.8 mg/dl (8.4-10.2); Carbon Dioxide 26 mmol/L (22.0-30.0); Chloride 109 mmol/L (98-107); Creatinine Clearance Estimated 48 mL/min (50-200); Estimated Glomerular Filt Rate 72 ml/min (>60); GFR (African American) 87 ML/MIN (>60); Glucose 105 mg/dl (74-100); Potassium 3.7 mmoL/L (3.5-5.1); Sodium 140 mmol/L (136-145)
[2020-07-12 07:37] VITALS: BP 143/82; PULSE 91; RESP 24; O2SAT 100
--- NOTE | 2020-07-12 08:58 | HMH.PNCARD ---
Subjective Date: 07/12/20 Time: 08:40 Principal diagnosis: PAD, CAD, s/p stenting Interval history: This is an 79 year old white male who came in as an outpatient and underwent LHC/B runoff and abdominal angiogram. This morning he denies CP or pressure. He does complain of SOA with exertion at times. this has improved. Denies edema. Denies fever, chills, N/V/D, PND or orthopnea. No bleeding noted. Access site has no bleeding or hematoma noted. Interventional procedure shows: Coronary disease as described above Successful stenting of the [place] circumflex artery 90% stenosis reduced to 10% with 1 drug-eluting stent Hyperdynamic ventricle consistent with hypertensive heart disease Normal left ventricular end-diastolic pressure Small infrarenal abdominal aortic aneurysm Bilateral severe common iliac artery stenosis Successful stenting of the right common iliac artery severe disease reduced to less than 10% with 1 self-expanding stent Inadvertent advancement of the right common iliac stent into the distal abdominal aorta which is clinically insignificant at this time and unlikely to present any future problems Successful stenting of the left common iliac artery severe disease reduced to less than 10% with 1 self-expanding stent followed by successful stenting of the left external iliac artery with a balloon mounted stent reducing the stenosis to 0% and improving inflow into the occluded left superficial femoral artery PLAN 1. Dual antiplatelet therapy for coronary artery disease and drug-eluting stenting 2. Treatment of hypertensive heart disease/diastolic dysfunction 3. Avoidance of tobacco products 4. Risk factor modification 5. LDL less than 55 6. At this time I had like to treat the peripheral artery disease medically. The left superficial femoral artery is densely calcified and severely occluded. Inflow has been improved to the left leg via stenting of the common and external iliac arteries. This should reduce patient's claudication to a more manageable level. If patient's claudication remains recalcitrant and intolerable I would consider bringing him back to the [facility] [place] and opening the chronically occluded superficial femoral artery. This is less than an ideal approach and I would much further recommend medical man 7. Abdominal aortic ultrasound to assess size of abdominal aortic aneurysm Exam Vital signs and Labs for Last 24 Hours: Temp Pulse Resp BP Pulse Ox 98.4 F 91 H 24 143/82 H 100 07/12/20 04:02 07/12/20 07:37 07/12/20 07:37 07/12/20 07:37 07/12/20 07:37 Laboratory Results - last 24 hr 07/11/20 11:57: Activated Clotting Time 255 H* 07/11/20 12:38: Activated Clotting Time 333 H* D 07/11/20 13:05: Activated Clotting Time 172 H* D 07/11/20 13:32: Urine Color Yellow, Urine Appearance Clear, Urine pH 7.0, Ur Specific [place] <= 1.005, Urine Protein Negative, Urine Glucose (UA) Negative, Urine Ketones Negative, Urine Blood 3+, Urine Nitrate Negative, Urine Bilirubin Negative, Urine Urobilinogen 0.2, Ur Leukocyte Esterase Negative, Urine RBC 10-20, Urine WBC 3-5, Ur Squamous Epith Cells 3-5, Urine Bacteria None 07/12/20 05:47: WBC 11.9 H D, RBC 4.38 L, Hgb 13.8 L, Hct 42.4, MCV 96.9 H, MCH 31.6 H, MCHC 32.6, RDW 13.6, Plt Count 282, MPV 8.5, Neut % (Auto) 74.5, Lymph % (Auto) 17.5, [place] % (Auto) 6.8, Eos % (Auto) 0.9, Baso % (Auto) 0.4, Neut # (Auto) 8.9 H, Lymph # (Auto) 2.1, [place] # (Auto) 0.8, Eos # (Auto) 0.1, Baso # (Auto) 0.0 07/12/20 06:17: Sodium 140, Potassium 3.7, Chloride 109 H, Carbon Dioxide 26, Anion Gap 8.7, BUN 19, Creatinine 1.00, Estimated Creat Clear 48, Estimated GFR 72, Est GFR ( Amer) 87, Glucose 105 H, Calcium 9.8 I & O for Last 24 hours: Intake & Output 07/09/20 07/10/20 07/11/20 07/12/20 23:59 23:59 23:59 23:59 Intake Total 360 / 360 Output Total 1400 / 2200 1050 / 1050 Balance -1400 / -2200 -690 / -690 Weight 138 lb 130 lb 7 oz Microbiology Repor
--- NOTE | 2020-07-12 09:12 | PC.NURSE ---
patient discharged at this time after speaking with cardiology. walked out by staff
--- NOTE | 2020-07-12 09:18 | HMH.PHACLD ---
Preston Reyes has received discharge medication counseling on the following medications: CONTINUED MEDICATIONS: ASPIRIN, ATORVASTATIN, BISOPROLOL, PLAVIX NO VIV/ARB AT THIS TIME PER CARDIOLOGY.
--- NOTE | 2020-07-12 11:05 | PC.NURSE ---
Jessica Jesus APRN seen pt prior to d/c and this RN verified that an Darryl or Arb was wanted at this time. Pt to f/u with Dr. Venegas. Education given to daughter.
--- NOTE | 2020-07-12 11:07 | PC.NURSE ---
Coello removed prior to d/c and marcio groin sites had no s/s of problems. Dsgs remain intact.
== END 2020-07-12 09:15 | disposition home or self-care (01) ==
LOC: CATHLAB 08:11 → 2ND 14:24
PROVIDERS: PCP Internal Medicine Adolescent Medicine; Visit Provider Internal Medicine
DX: I70.223 Atherosclerosis of native arteries of extremities with rest pain, bilateral legs (principal); I10 Essential (primary) hypertension; I65.23 Occlusion and stenosis of bilateral carotid arteries; I25.118 Atherosclerotic heart disease of native coronary artery with other forms of angina pectoris; I71.4 Abdominal aortic aneurysm, without rupture; Z95.1 Presence of aortocoronary bypass graft; I77.1 Stricture of artery; K55.1 Chronic vascular disorders of intestine; E78.2 Mixed hyperlipidemia; Z95.5 Presence of coronary angioplasty implant and graft; F17.210 Nicotine dependence, cigarettes, uncomplicated; I70.213 Atherosclerosis of native arteries of extremities with intermittent claudication, bilateral legs
CPT/HCPCS: 37221; 37223; 80048; 81001; 85025; 85347; 92928; 93459; 99152; 99153; C1725; C1760; C1766; C1769; C1876; C1894; C9600; J1644; J2720; Q9966; Q9967; U0003

== ENCOUNTER → 2020-07-19 12:21 | Outpatient (CLI) | payer MEDICARE, OTHER, SELFPAY ==
[2020-07-19 13:18] LABS: Basophils # 0.1 K/mm3 (0-0.2); Basophils % 0.5 % (0.1-2.0); Eosinophils # 0.4 K/mm3 (0.0-0.4); Eosinophils % 3.7 % (0.1-12.0); Hematocrit 36.5 % (42.0-52.0); Hemoglobin 11.9 g/dL (14.1-18.0); Lymphocytes # 1.9 K/mm3 (0.7-4.5); Lymphocytes % 18.8 % (10-50); Mean Corpuscular HGB Conc 32.7 g/dL (31.8-35.4); Mean Corpuscular Hemoglobin 32.1 pg (27.0-31.2); Mean Corpuscular Volume 97.9 fl (80-94); Mean Platelet Volume 8.7 fl (7.4-10.4); Monocytes # 0.9 K/mm3 (0.1-1.0); Monocytes % 9.2 % (1.7-9.3); Neutrophils # 6.9 K/mm3 (1.8-7.8); Neutrophils % 67.8 % (37.0-80.0); Platelet Count 363 K/mm3 (142-424); Red Blood Count 3.73 M/mm3 (4.60-6.20); Red Cell Distribution Width 13.4 % (11.5-17.5); White Blood Count 10.1 K/mm3 (4.8-10.8)
[2020-07-19 13:26] LABS: Chloride 101 mmol/L (98-107); Potassium 3.9 mmoL/L (3.5-5.1); Sodium 137 mmol/L (136-145)
[2020-07-19 13:29] LABS: Anion Gap 9.9 mEq/L (5-15); Blood Urea Nitrogen 14 mg/dl (9-20); Calcium 9.5 mg/dl (8.4-10.2); Carbon Dioxide 30 mmol/L (22.0-30.0); Estimated Glomerular Filt Rate 64 ml/min (>60); GFR (African American) 78 ML/MIN (>60); Glucose 109 mg/dl (74-100)
== END ==
PROVIDERS: Visit Provider Internal Medicine
DX: Z95.5 Presence of coronary angioplasty implant and graft (principal); I25.10 Atherosclerotic heart disease of native coronary artery without angina pectoris
CPT/HCPCS: 36415; 80048; 85025

== ENCOUNTER → 2020-07-30 10:11 | Outpatient (CLI) | payer MEDICARE, OTHER, SELFPAY ==
[2020-07-30 10:33] LABS: Basophils # 0.1 K/mm3 (0-0.2); Basophils % 0.7 % (0.1-2.0); Eosinophils # 0.5 K/mm3 (0.0-0.4); Eosinophils % 5.3 % (0.1-12.0); Hematocrit 42.5 % (42.0-52.0); Lymphocytes # 2.2 K/mm3 (0.7-4.5); Mean Corpuscular HGB Conc 32.9 g/dL (31.8-35.4); Mean Corpuscular Hemoglobin 32.4 pg (27.0-31.2); Mean Corpuscular Volume 98.4 fl (80-94); Mean Platelet Volume 8.3 fl (7.4-10.4); Monocytes # 0.5 K/mm3 (0.1-1.0); Neutrophils # 5.7 K/mm3 (1.8-7.8); Platelet Count 425 K/mm3 (142-424); Red Blood Count 4.32 M/mm3 (4.60-6.20); White Blood Count 8.9 K/mm3 (4.8-10.8)
[2020-07-30 11:23] LABS: Anion Gap 7.1 mEq/L (5-15); Blood Urea Nitrogen 12 mg/dl (9-20); Calcium 9.7 mg/dl (8.4-10.2); Carbon Dioxide 33 mmol/L (22.0-30.0); Chloride 104 mmol/L (98-107); Estimated Glomerular Filt Rate 64 ml/min (>60); GFR (African American) 78 ML/MIN (>60); Glucose 93 mg/dl (74-100); Potassium 5.1 mmoL/L (3.5-5.1); Sodium 139 mmol/L (136-145)
== END ==
PROVIDERS: Visit Provider Internal Medicine
DX: Z01.812 Encounter for preprocedural laboratory examination (principal); Z20.822 Contact with and (suspected) exposure to COVID-19; I25.10 Atherosclerotic heart disease of native coronary artery without angina pectoris
CPT/HCPCS: 36415; 80048; 85025; U0003

== ENCOUNTER 2020-07-31 12:28 | Observation (INO) | payer MEDICARE, OTHER, SELFPAY ==
[2020-07-31] VITALS (21 sets, daily range): BP systolic 63–139; BP diastolic 32–88; PULSE 50–83; RESP 10–19; TEMP 36.4–37; O2SAT 93–100; BMI 19.2; BMI 15.0
--- NOTE | 2020-07-31 07:11 | IR_ITS ---
APPROVED REPORT Patient Location: Outpatient Adjunct History Instructor: TEVIN Norris RT (R) PROCEDURES Right radial arterial access Catheter placed in the suprarenal abdominal aorta Suprarenal abdominal aortogram Catheter placement in the superior mesenteric artery Selective superior mesenteric artery angiogram Bare-metal stent deployment to the superior mesenteric artery Catheter placement in the left renal artery Left renal artery selective angiogram Bare-metal stent deployment to the left renal artery Catheter placement in the celiac artery Selective celiac artery angiogram Bare-metal stent deployment to the ostial proximal celiac artery Catheter placement in the inferior mesenteric artery Selective inferior mesenteric artery angiogram Catheter placement in the right renal artery Selective angiography of the right renal artery INDICATION Intestinal ischemia, 60 to 80 pound weight loss over 6 months., Celiac artery stenosis, Superior mesenteric artery stenosis, Left renal artery stenosis, Hypertension, 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 COMPLICATIONS NONE Estimated Blood Loss: LESS THAN 10 ML TECHNIQUE 1% lidocaine used anesthetize the right anterior aspect of the right wrist. The right radial artery was accessed via the Salinger technique and a 6 Burkinan hydrophilic sheath was placed in the right radial artery. A 5 Burkinan SALEH catheter was placed in the transverse aorta and used to cannulate the transverse aorta which allowed passa a wire into the descending thoracic aorta. Following this the PV multi curve catheter was then exchanged over a wire and then placed distally. Superior mesenteric artery angiography was performed once there was selective intubation of the vessel. Therapeutic heparin had already been administered and the ACT was out of range. At this point they 115 mm 6 Burkinan radial hydrophilic sheath was then exchanged after removal of the short 6 Burkinan sheath. The sheath was then used to cannulate the superior mesenteric artery. A 7 mm x 18 mm Herculink stent was then deployed at 16 mer reducing the severe stenosis to 0%. Excellent angiographic results were obtained. The catheter was then removed and abdominal aortography was performed. A PV multi curve was then advanced with plans to cannulate the celiac artery. Right renal artery was selectively engaged and angiography was performed. The left renal artery was also selectively engaged which demonstrated a severe ostial stenosis. A 300 cm Choice PT extra-support wire was then placed distal Tj in the left renal artery and a 6 mm x 15 mm Herculink stent was deployed at 18 mer reducing the severe stenosis to 0%. Following this the catheter was pulled back and then placed into the celiac artery where angiography demonstrated a severe stenosis. A 7 mm x 18 mm Herculink stent was then placed in the ostial proximal segment of the celiac artery and deployed at 20 mer. An 8 mm x 20 mm balloon was then placed back into the stent and deployed at 14 mer to post dilate. Angiography demonstrated wide patency of the celiac artery. After achieving excellent angiographic results the apparatus was removed the sheath was removed good hemostasis was achieved using TR banding patient was transferred to the postop holding in stable condition ANGIOGRAPHIC RESULTS The celiac artery has an ostial greater than 70% stenosis The superior mesenteric artery has a proximal greater than 80% stenosis The left renal artery singular and has a proximal greater than 90% stenosis The inferior mesenteric artery has mild less than 50% ostial stenosis The right renal mame
--- NOTE | 2020-07-31 11:22 | CT_ITS ---
PROCEDURE: CT ABDOMEN PELVIS WO CON CLINICAL INDICATION: abd pain, post procedure COMPARISON: CT CT ABDOMEN PELVIS W CON from 06/04/2020 XA CL AORTAGRAM from 07/31/2020 TECHNIQUE: Axial images obtained with sagittal and coronal reformats. All CT scans at the facility use one or more dose reduction, viz: automated exposure control, ma/kV adjustment per patient size (including targeted exams where dose is matched to indication, i.e. head), or iterative reconstruction technique. FINDINGS: LOWER THORAX: COPD changes noted in the lung bases with cystic/bullous change in the right lung base laterally with some areas of scarring the/pulmonary fibrotic change in the right lung base. ABDOMEN & PELVIS: There has been a prior cholecystectomy. The liver has an unremarkable appearance. There is acute intraperitoneal and retroperitoneal hemorrhage. The retroperitoneal hemorrhage is on the left. Multiple bowel loops are surrounded by blood in the lower abdomen in the left kidney is surrounded by blood. The pancreas is not well delineated due to the intra-abdominal hemorrhage. Stomach is displaced anteriorly. Most of the intra-abdominal hemorrhage is in the upper abdominal region and in the left retroperitoneum. There are bilateral iliac artery stents, left renal stent, celiac and superior mesenteric artery stents present. No intestinal obstruction or free air. The urinary bladder is filled with contrast. Contrast is present in both renal collecting systems. No acute bony findings. IMPRESSION: Acute intraperitoneal and left retroperitoneal hemorrhage as described above. Preliminary report given over telephone to Vinh in the refuse laborer to immediately relay the report to Dr. Venegas Dictated by: Андрей Cavazos MD 07/31/2020 11:59 Андрей Cavazos MD in [facility] 07/31/2020 11:59
--- NOTE | 2020-07-31 11:55 | SUR.PHASEII ---
PT NOTED TO HAVE LOW BP'S POST STENTING (SEE VS CHARTING). PT RECEIVED 2L NS IVF BOLUS. CONTINUES TO BE HYPOTENSIVE. MANUAL BP = 84/54 ON VÍCTOR. PT COMPLAINS OF NAUSEA AND MILD PAIN TO MIDDLE OF ABD. MD NOTIFIED. ORDERED STAT ABD CT. DR SALOMON CALLED PAPER CUP MACHINE OPERATOR REPORTING ACUTE BLEEDING IN ABD. SEE REPORT FOR SPECIFICS. DR. DUMAS NOTIFIED AND ORDERED 20MG PROTAMINE, CONTINUE IVF BOLUS, TYPE AND CROSS 4 UNITS BLOOD, DR. DUMAS STATES HE WILL CONTACT DR. JUÁREZ FOR ADMISSION.
[2020-07-31 12:15] LABS: CATHL Activated Clotting Time > 400 SEC (74-125)
[2020-07-31 12:18] LABS: Microscopic, Urine URINE MICROSCOPIC (MICROSCOPIC)
[2020-07-31 12:22] LABS: Basophils % 0.2 % (0.1-2.0); Eosinophils # 0.3 K/mm3 (0.0-0.4); Eosinophils % 3.4 % (0.1-12.0); Hemoglobin 9.6 g/dL (14.1-18.0); Lymphocytes # 1.8 K/mm3 (0.7-4.5); Lymphocytes % 22.2 % (10-50); Mean Corpuscular HGB Conc 33.3 g/dL (31.8-35.4); Mean Corpuscular Hemoglobin 32.6 pg (27.0-31.2); Mean Corpuscular Volume 97.8 fl (80-94); Mean Platelet Volume 8.3 fl (7.4-10.4); Monocytes # 0.3 K/mm3 (0.1-1.0); Neutrophils # 5.8 K/mm3 (1.8-7.8); Neutrophils % 70.2 % (37.0-80.0); Platelet Count 278 K/mm3 (142-424); Red Blood Count 2.96 M/mm3 (4.60-6.20); Red Cell Distribution Width 13.1 % (11.5-17.5); White Blood Count 8.3 K/mm3 (4.8-10.8)
[2020-07-31 12:37] LABS: Appearance,Urine CLEAR (Clear); Bilirubin,Urine Negative (Negative); Blood, Urine 3+ (Negative); Color,Urine YELLOW (Yellow); Glucose,Urine (UA) Negative (Negative); Ketones,Urine Negative (Negative); Leukocyte Esterase,Urine Negative (Negative); Nitrate,Urine Negative (Negative); Protein,Urine Negative (Negative); Urobilinogen,Urine 0.2 EU/dl (0.2)
[2020-07-31 12:59] LABS: Bacteria,Urine Trace /lpf; Squamous Epithelial Cell,Urine Occasional #/hpf (0-5)
--- NOTE | 2020-07-31 13:09 | PC.NURSE ---
pt arrived to the floor room 218 @ [id number].
--- NOTE | 2020-07-31 16:48 | PC.NURSE ---
pt got OOB and shuffled feet to chair with 2 person assist. Pt exhibited orthostatic hypotension. BP 82/47.
--- NOTE | 2020-07-31 17:00 | PC.NURSE ---
pt has been sitting in chair for aprox 15 min. BP now 120/60.
--- NOTE | 2020-07-31 18:25 | HMH.HP ---
*Admission Date: 07/31/20 *Chief complaint: anemia/retroperitoneal bleed *History of present illness: 79-year-old male seen by cardiology today for interventional procedure including superior mesenteric artery stenting, celiac artery stenting, left renal artery stenting. Procedure today was uneventful however postprocedural imaging concerning for retroperitoneal hemorrhage. Cardiology contacted medicine for admission and assistance with care. Patient directly admitted after procedure with plan to monitor overnight with serial labs to monitor for anemia and worsening bleeding. Patient seen after clinic today. Had no acute complaints. Denied chest pain, shortness of breath, abdominal pain. Appears comfortable in bed. Asking to go home. Tolerated dinner with no nausea or significant discomfort. Hemodynamically stable on exam and interview. Patient otherwise alert at baseline. 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; Successful stenting of the superior mesenteric artery severe disease reduced to 0% with 1 bare-metal stent Severe stenosis in the left renal artery; Successful stenting the left renal artery severe disease reduced to 0% with 1 bare-metal stent Mild nonflow limiting right renal artery disease Mild nonflow limiting inferior mesenteric artery disease [facility] History I have reviewed the patient's past medical history: Yes Medical History: Reports:: Cancer (lung), Coronary Artery Disease, Hyperlipidemia, Hypertension, Myocardial Infarction, Peripheral Artery Disease, Transient Ischemic Attacks (TIA) Denies:: Diabetes Mellitus Type 1, Diabetes Mellitus Type 2, Internal Pacemaker, MRSA, Seizures *Have you ever received a pneumonia vaccine?: No *Have you received a flu vaccine this season?: No Other Surgeries: Yes: CABG, Cardiac Catheterization, Coronary Stent. No: Pacemaker Amputation: No Fractures: No - *Social History Smoking Status: Current every day smoker Tobacco Type: cigarettes # Packs/Day (cigarettes): 1 Alcohol Intake: never Substance Use Type: denies use *Occupational Status:: retired Housing: house Household Members: spouse *Travel in the last 8 weeks: None Family Hx:: Cancer Review of Systems - Review of Systems Review of systems:: pertinent systems reviewed and negative unless documented below (14 point review of systems performed, pertinent positives and negatives as per HPI) Meds Home Medications Medication Instructions Recorded Confirmed Type amlodipine 2.5 mg tablet 2.5 mg PO DAILY tab 06/19/20 07/31/20 History aspirin 81 mg tablet,delayed 81 mg PO DAILY 06/19/20 07/31/20 History release atorvastatin 10 mg tablet 10 mg PO HS tab 06/19/20 07/31/20 History cholecalciferol (vitamin D3) 25 25 mcg PO DAILY 06/19/20 07/31/20 History mcg (1,000 unit) capsule tramadol 50 mg tablet 50 mg PO DAILY PRN tab 06/19/20 07/31/20 History vitamin B complex 1 tab PO DAILY 06/19/20 07/31/20 History Clopidogrel Bisulfate [Plavix 75mg 75 mg PO DAILY 07/11/20 07/31/20 History Tab] Albuterol Sulfate [Albuterol 2 puffs IH Q6HP PRN 07/31/20 07/31/20 History Sulfate Hfa] Bisoprolol Fumarate [Bisoprolol 5 mg PO DAILY 07/31/20 07/31/20 History 5mg Tablet] Melatonin 5 mg PO HS 07/31/20 07/31/20 History Pantoprazole Sodium 40 mg PO DAILY 07/31/20 07/31/20 History cilostazoL [Pletal 100mg tablet] 100 mg PO BID 07/31/20 07/31/20 History polyethyle
[2020-07-31 18:39] LABS: Basophils # 0.1 K/mm3 (0-0.2); Basophils % 0.3 % (0.1-2.0); Eosinophils % 0.1 % (0.1-12.0); Hematocrit 35.3 % (42.0-52.0); Lymphocytes # 1.8 K/mm3 (0.7-4.5); Lymphocytes % 10.6 % (10-50); Mean Corpuscular HGB Conc 31.9 g/dL (31.8-35.4); Mean Corpuscular Hemoglobin 31.9 pg (27.0-31.2); Mean Corpuscular Volume 100.1 fl (80-94); Mean Platelet Volume 8.3 fl (7.4-10.4); Monocytes # 0.6 K/mm3 (0.1-1.0); Monocytes % 3.7 % (1.7-9.3); Neutrophils # 14.5 K/mm3 (1.8-7.8); Neutrophils % 85.2 % (37.0-80.0); Platelet Count 405 K/mm3 (142-424); Red Blood Count 3.53 M/mm3 (4.60-6.20); Red Cell Distribution Width 13.2 % (11.5-17.5)
[2020-07-31 18:42] LABS: MANUAL DIFFERENTIAL MANUAL DIFFERENTIAL (MANUAL DIFF)
[2020-07-31 18:47] LABS: Hemoglobin 11.4 g/dL (14.1-18.0)
[2020-07-31 20:00] LABS: Lymphocytes % 9 % (10-50); Monocytes % 4 % (2-9); Neutrophils % 87 % (42-76); Total Cells Counted 100
[2020-07-31 20:01] LABS: Platelet Estimate Normal
[2020-07-31 20:04] LABS: RBC Morphology Normal
[2020-08-01] VITALS: BP 102/65; PULSE 70; PULSE 72; RESP 15; TEMP 36.8; O2SAT 97
[2020-08-01 02:00] VITALS: BP 102/69; PULSE 79; RESP 16; O2SAT 97
--- NOTE | 2020-08-01 02:11 | PC.WOUNDNOTE ---
0100 patient complained of intense pain in left lower extremity. pulses palpable bilateral lower extremities. dr. glenna barba, new orders received and carried out.
[2020-08-01 04:00] VITALS: BP 96/55; PULSE 71; PULSE 80; RESP 16; TEMP 36.6; O2SAT 97
[2020-08-01 06:00] VITALS: BP 100/62; PULSE 65; RESP 16; O2SAT 97
[2020-08-01 06:49] LABS: Basophils # 0.1 K/mm3 (0-0.2); Basophils % 0.4 % (0.1-2.0); Eosinophils # 0.1 K/mm3 (0.0-0.4); Eosinophils % 0.6 % (0.1-12.0); Hematocrit 27.2 % (42.0-52.0); Lymphocytes # 2.3 K/mm3 (0.7-4.5); Lymphocytes % 19.6 % (10-50); Mean Corpuscular HGB Conc 33.7 g/dL (31.8-35.4); Mean Corpuscular Hemoglobin 32.6 pg (27.0-31.2); Mean Corpuscular Volume 96.7 fl (80-94); Mean Platelet Volume 8.5 fl (7.4-10.4); Monocytes # 0.6 K/mm3 (0.1-1.0); Neutrophils # 8.9 K/mm3 (1.8-7.8); Neutrophils % 74.3 % (37.0-80.0); Platelet Count 320 K/mm3 (142-424); Red Blood Count 2.81 M/mm3 (4.60-6.20); Red Cell Distribution Width 13.2 % (11.5-17.5); White Blood Count 11.9 K/mm3 (4.8-10.8)
[2020-08-01 06:50] VITALS: BMI 15.3
[2020-08-01 07:04] LABS: Hemoglobin 9.2 g/dL (14.1-18.0)
[2020-08-01 07:10] LABS: Anion Gap 8.5 mEq/L (5-15); Blood Urea Nitrogen 18 mg/dl (9-20); Carbon Dioxide 25 mmol/L (22.0-30.0); Chloride 108 mmol/L (98-107); Creatinine Clearance Estimated 47 mL/min (50-200); Estimated Glomerular Filt Rate 64 ml/min (>60); GFR (African American) 78 ML/MIN (>60); Glucose 92 mg/dl (74-100); Potassium 4.5 mmoL/L (3.5-5.1); Sodium 137 mmol/L (136-145)
[2020-08-01 07:14] LABS: Calcium 8.6 mg/dl (8.4-10.2)
--- NOTE | 2020-08-01 07:39 | P.CONPHA_ITS ---
[facility] Pharmacy VTE Monitoring - Patient Demographics Admission date: 07/31/20 Report Date: 08/01/20 Time: 07:39 Allergies/Adverse Reactions: Patient Allergies No Known Allergies Allergy (Verified 07/31/20 08:25) Height: 2.03 m Weight: 63.304 kg Patient Problems: Current Active Problems Retroperitoneal bleed (Acute) Claudication (Chronic) Superior mesenteric artery stenosis (Acute) Celiac artery stenosis (Acute) Tobacco dependence syndrome (Chronic) HLD (hyperlipidemia) (Chronic) HTN (hypertension) (Chronic) Hx of CABG (Chronic) CAD (coronary artery disease) (Chronic) - VTE Risk Labs: VTE Related Lab Results Hgb 9.2 g/dL (14.1-18.0) L D 08/01/20 06:10 Hct 27.2 % (42.0-52.0) L 08/01/20 06:10 Plt Count 320 K/mm3 (142-424) 08/01/20 06:10 BUN 18 mg/dl (9-20) D 08/01/20 06:10 Creatinine 1.10 mg/dl (0.66-1.25) 08/01/20 06:10 Estimated Creat Clear 47 mL/min (50-200) 08/01/20 06:10 Was VTE Risk Assessment Performed: Yes VTE Score: 4 VTE Risk Level: Low Risk Clinical Trial Participant: No - Prophylaxis VTE Prophylaxis Ordered?: Yes Types of VTE Prophylaxis: TEDS Knee High
[2020-08-01 08:00] VITALS: BP 92/52; PULSE 60; PULSE 70; RESP 16; TEMP 36.7; O2SAT 97
--- NOTE | 2020-08-01 08:27 | HMH.DCSUM ---
General - General Admission date:: 07/31/20 Discharge date: 08/01/20 [facility] HPI: 79-year-old male seen by cardiology today for interventional procedure including superior mesenteric artery stenting, celiac artery stenting, left renal artery stenting. Procedure today was uneventful however postprocedural imaging concerning for retroperitoneal hemorrhage. Cardiology contacted medicine for admission and assistance with care. Patient directly admitted after procedure with plan to monitor overnight with serial labs to monitor for anemia and worsening bleeding. Patient seen after clinic today. Had no acute complaints. Denied chest pain, shortness of breath, abdominal pain. Appears comfortable in bed. Asking to go home. Tolerated dinner with no nausea or significant discomfort. Hemodynamically stable on exam and interview. Patient otherwise alert at baseline. 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; Successful stenting of the superior mesenteric artery severe disease reduced to 0% with 1 bare-metal stent Severe stenosis in the left renal artery; Successful stenting the left renal artery severe disease reduced to 0% with 1 bare-metal stent Mild nonflow limiting right renal artery disease 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 The patient was observed overnight. No significant change in hemoglobin from baseline, hemoglobin immediately after the procedure was actually 2 g above his baseline which is somewhat difficult to explain but I do not think his hemoglobin this morning represents any kind of active bleeding. This morning patient wished to be discharged home. Discussed case with cardiology and they were also comfortable with him being discharged home with short-term follow-up. Patient was able to eat well today, get up and around without any orthostatic symptoms and abdominal exam was unrevealing. Patient we discharged home in the noted medications with dual antiplatelet therapy for a month. We will see him in 48 hours with labs and examination in the office. Cardiology will follow him in 1 week. Objective Vital signs: Temp Pulse Resp BP Pulse Ox 98.1 F 65 16 100/62 L 97 08/01/20 08:00 08/01/20 06:00 08/01/20 06:00 08/01/20 06:00 08/01/20 06:00 no acute distress - *Routine HEENT Exam Head: Present: normocephalic Eye: Present: EOMI, PERRL ENT: Present: mucous membranes moist - *Routine Neck Exam Present: supple - *Routine Respiratory Exam Present: CTA bilaterally - *Routine Cardiovascular Exam Present: RRR - *Routine Abdominal Exam Present: soft, normoactive bowel sounds. Absent: tenderness - *Routine Extremities Exam Absent: cyanosis, clubbing, edema - *Routine Skin Exam Present: warm. Absent: rash - Detailed Eye Exam Eyelids: Bilateral normal inspection Results Labs on day of discharge: Labs from last 24 hours 08/01/20 08/01/20 07/31/20 06:10 06:10 18:00 WBC 11.9 H D 17.0 H D RBC 2.81 L 3.53 L Hgb 9.2 L D 11.4 L D Hct 27.2 L 35.3 L MCV 96.7 H 100.1 H MCH 32.6 H 31.9 H MCHC 33.7 31.9 RDW 13.2 13
--- NOTE | 2020-08-01 09:42 | HMH.PHACLD ---
Preston Reyes has received discharge medication counseling on the following medications: CONTINUED MEDICATIONS: PLAVIX, ASPIRIN, ATORVASTATIN PATIENT RECEIVED A PERIPHERAL STENT, BETA DEANNA AND VIV/ARB NOT INDICATED.
[2020-08-01 11:45] VITALS: TEMP 37.1
== END 2020-08-01 13:38 | disposition home or self-care (01) ==
LOC: 2ND 12:29
PROVIDERS: Internal Medicine; Admitting Provider Internal Medicine Adolescent Medicine; PCP Internal Medicine Adolescent Medicine; Visit Provider Internal Medicine Adolescent Medicine
DX: I70.298 Other atherosclerosis of native arteries of extremities, other extremity (principal); I70.1 Atherosclerosis of renal artery; K55.1 Chronic vascular disorders of intestine; E78.2 Mixed hyperlipidemia; F17.210 Nicotine dependence, cigarettes, uncomplicated; I10 Essential (primary) hypertension; I25.10 Atherosclerotic heart disease of native coronary artery without angina pectoris; I65.23 Occlusion and stenosis of bilateral carotid arteries; I71.4 Abdominal aortic aneurysm, without rupture; Z95.1 Presence of aortocoronary bypass graft; I77.1 Stricture of artery; I77.4 Celiac artery compression syndrome; Z98.890 Other specified postprocedural states; R58 Hemorrhage, not elsewhere classified; R63.4 Abnormal weight loss; Z68.1 Body mass index [BMI] 19.9 or less, adult; R64 Cachexia
CPT/HCPCS: 36251; 36415; 37236; 37237; 74176; 80048; 81001; 85007; 85025; 85347; 86850; 99152; 99153; C1725; C1769; C1876; G0378; J1644; U0003

== ENCOUNTER → 2020-08-03 12:12 | Outpatient (CLI) | payer MEDICARE, OTHER, SELFPAY ==
[2020-08-03 12:39] LABS: Basophils % 0.3 % (0.1-2.0); Eosinophils # 0.2 K/mm3 (0.0-0.4); Eosinophils % 1.8 % (0.1-12.0); Hematocrit 25.6 % (42.0-52.0); Hemoglobin 8.6 g/dL (14.1-18.0); Lymphocytes # 1.9 K/mm3 (0.7-4.5); Lymphocytes % 20.7 % (10-50); Mean Corpuscular HGB Conc 33.6 g/dL (31.8-35.4); Mean Corpuscular Hemoglobin 32.4 pg (27.0-31.2); Mean Corpuscular Volume 96.5 fl (80-94); Mean Platelet Volume 8.9 fl (7.4-10.4); Monocytes # 0.6 K/mm3 (0.1-1.0); Monocytes % 6.5 % (1.7-9.3); Neutrophils # 6.6 K/mm3 (1.8-7.8); Neutrophils % 70.7 % (37.0-80.0); Platelet Count 261 K/mm3 (142-424); Red Blood Count 2.66 M/mm3 (4.60-6.20); Red Cell Distribution Width 13.3 % (11.5-17.5); White Blood Count 9.4 K/mm3 (4.8-10.8)
[2020-08-03 13:36] LABS: Anion Gap 14.3 mEq/L (5-15); Blood Urea Nitrogen 15 mg/dl (9-20); Calcium 9.1 mg/dl (8.4-10.2); Carbon Dioxide 26 mmol/L (22.0-30.0); Chloride 101 mmol/L (98-107); Estimated Glomerular Filt Rate 64 ml/min (>60); GFR (African American) 78 ML/MIN (>60); Glucose 70 mg/dl (74-100); Potassium 4.3 mmoL/L (3.5-5.1); Sodium 137 mmol/L (136-145)
== END ==
PROVIDERS: Visit Provider Internal Medicine Adolescent Medicine
DX: D64.9 Anemia, unspecified (principal)
CPT/HCPCS: 36415; 80048; 85025; 86850

== ENCOUNTER 2020-08-04 10:35 | Outpatient (CLI) | payer MEDICARE, OTHER, SELFPAY ==
[2020-08-04] VITALS (12 sets, daily range): BP systolic 113–140; BP diastolic 59–79; PULSE 55–61; RESP 18; TEMP 36.7–37; O2SAT 95–96; BMI 23.7
[2020-08-04 16:06] LABS: Hematocrit 25.3 % (42.0-52.0); Hemoglobin 8.7 g/dL (14.1-18.0)
== END 2020-08-04 16:00 | disposition home or self-care (01) ==
LOC: INF 10:38
PROVIDERS: PCP Internal Medicine Adolescent Medicine; Visit Provider Internal Medicine Adolescent Medicine
DX: D64.9 Anemia, unspecified (principal)
CPT/HCPCS: 36430; 85014; 85018; P9016

== ENCOUNTER → 2020-08-16 17:28 | Outpatient (CLI) | payer MEDICARE, OTHER, SELFPAY ==
[2020-08-16 17:44] LABS: Basophils # 0.1 K/mm3 (0-0.2); Basophils % 0.5 % (0.1-2.0); Eosinophils # 0.4 K/mm3 (0.0-0.4); Eosinophils % 4.1 % (0.1-12.0); Hemoglobin 11.9 g/dL (14.1-18.0); Lymphocytes % 19.3 % (10-50); Mean Corpuscular HGB Conc 32.1 g/dL (31.8-35.4); Mean Corpuscular Volume 99.5 fl (80-94); Monocytes # 0.6 K/mm3 (0.1-1.0); Monocytes % 5.5 % (1.7-9.3); Neutrophils # 7.4 K/mm3 (1.8-7.8); Neutrophils % 70.8 % (37.0-80.0); Platelet Count 349 K/mm3 (142-424); Red Blood Count 3.72 M/mm3 (4.60-6.20); Red Cell Distribution Width 14.6 % (11.5-17.5); White Blood Count 10.4 K/mm3 (4.8-10.8)
[2020-08-16 18:45] LABS: Thyroid Stimulating Hormone 3.19 uIU/mL (0.465-4.68)
== END ==
PROVIDERS: Visit Provider Internal Medicine Adolescent Medicine
DX: I10 Essential (primary) hypertension (principal); D62 Acute posthemorrhagic anemia
CPT/HCPCS: 84443; 85025

== ENCOUNTER 2020-09-07 19:24 | Emergency (ER) | payer MEDICARE, OTHER, SELFPAY ==
[2020-09-07 19:25] VITALS: BP 160/83; PULSE 68; RESP 18; TEMP 36.7; O2SAT 99; BMI 18.6
--- NOTE | 2020-09-07 19:40 | HMH.EDUTC ---
[facility] [place] Disposition Clinical Impression: Bleeding from wound Disposition: Home, Self-Care Condition on Discharge: Good Instructions: DI for Abrasion Additional Instructions: Be careful and do not scratch sores on your arms *Follow up with your Family Doctor if you continued to have wounds that ooze blood and hard to stop bleeding Return if needed Straight to ER if any life threatening symptoms Referrals: Brian Kaba MD [Primary Care Provider] - As needed Time of Disposition: 20:33 Medical Decision Making - Dante Inquiry Pt receiving controlled substance: No Dante was queried for this patient: No Vital Signs: 09/07/20 19:25 09/07/20 20:09 Temperature 98.0 F 98.0 F Temperature Source Temporal Artery Scan Pulse Rate 68 Pulse Rate [Left Brachial] 68 Respiratory Rate 18 18 Blood Pressure 160/83 H Blood Pressure [Left Arm] 160/83 H Blood Pressure Mean [Left Arm] 108 Blood Pressure Source [Left Arm] Automatic Cuff Blood Pressure Position [Left Arm] Sitting 02 Sat by Pulse Oximetry 99 Oxygen Delivery Method Room Air Medical Decision Narrative: small amount of dermabond was applied and steri strip placed on open area on right elbow no bleeding at this time Patient educated to not pick and pull this off to allow it to wear off and follow up with Family Doctor if he continues to have sores that are hard to stop bleeding due to history of skin cancer and patient agreed [facility] [place] HPI - General Stated complaint: spot on arm will not stop bleeding Time Seen by Provider: 09/07/20 19:40 Mode of Arrival: Ambulatory Source of Information: Patient Limitations: No Limitations Description of Symptoms (Recalled from Triage Doc. by RN): PATIENT STATES HE HAS A SORE ON RIGHT ARM THAT WILL NOT STOP BLEEDING HEENT Symptoms (Recalled from RN notes): No Resp Symptoms (Recalled from RN notes): No Skin Symptoms (Recalled from RN notes): Yes MS Symptoms (Recalled from RN notes): No Functional Status (Recalled from RN notes): WNL - History of Present Illness Provider Complaint: Patient states that he was taking a nap and must have scratched his right elbow while he was sleeping States that he had a little area there where he scratched that will not stop bleeding States that he would hold pressure and then take off the bandage and it would start back States that it was not bleeding bad but enough to aggrivate him and make him worry when he couldnt get it to stop - Related Data Home Medications Medication Instructions Recorded Confirmed aspirin 81 mg tablet,delayed 81 mg PO DAILY 06/19/20 08/15/20 release atorvastatin 10 mg tablet 10 mg PO HS tab 06/19/20 08/15/20 cholecalciferol (vitamin D3) 25 25 mcg PO DAILY 06/19/20 08/15/20 mcg (1,000 unit) capsule tramadol 50 mg tablet 50 mg PO DAILY PRN tab 06/19/20 08/15/20 vitamin B complex 1 tab PO DAILY 06/19/20 08/15/20 Clopidogrel Bisulfate [Plavix 75mg 75 mg PO DAILY 07/11/20 08/15/20 Tab] Albuterol Sulfate [Albuterol 2 puffs IH Q6HP PRN 07/31/20 08/15/20 Sulfate Hfa] Melatonin 5 mg PO HS 07/31/20 08/15/20 Pantoprazole Sodium 40 mg PO DAILY 07/31/20 08/15/20 polyethylene glycoL 3350 [Miralax 17 gm PO DAILY 07/31/20 08/15/20 Powder] Allergies Allergy/AdvReac Type Severity Reaction Status Date / Time No Known Allergies Allergy Verified 08/15/20 11:06 - Worker's Comp Is this a Worker's Comp case?: No [facility] History - Hepatitis A Screen Drug use history?: No High risk sexual behaviors?: No History of sexually transmitted infection?: No Currently employed?: No Childcare worker?: No Do you have indoor plumbing?: Yes Do you have electricity?: Yes Attestation statement:: This patient has been screened for Hepatitis A risk factors. I have reviewed the patient's past medical history: Yes Medical History: Reports:: Cancer, Coronary Artery Disease, Hyperlipidemia, Hypertension, Myocardial Infarction, Peripheral Artery Disease, Transient Isch
[2020-09-07 20:09] VITALS: BP 160/83; PULSE 68; RESP 18; TEMP 36.7; O2SAT 99
== END 2020-09-07 20:36 | disposition home or self-care (01) ==
PROVIDERS: Emergency Provider Nurse Practitioner; PCP Internal Medicine Adolescent Medicine
DX: S51.011A Laceration without foreign body of right elbow, initial encounter (principal); W22.8XXA Striking against or struck by other objects, initial encounter; Y92.019 Unspecified place in single-family (private) house as the place of occurrence of the external cause; I25.10 Atherosclerotic heart disease of native coronary artery without angina pectoris; E78.5 Hyperlipidemia, unspecified; I10 Essential (primary) hypertension; I73.9 Peripheral vascular disease, unspecified; I25.2 Old myocardial infarction; Z95.1 Presence of aortocoronary bypass graft; F17.210 Nicotine dependence, cigarettes, uncomplicated; Z79.899 Other long term (current) drug therapy
CPT/HCPCS: 12001; G0463; 99202

== ENCOUNTER → 2020-09-18 15:37 | Outpatient (CLI) | payer MEDICARE, SELFPAY ==
[2020-09-18 16:00] LABS: Basophils # 0.1 K/mm3 (0-0.2); Basophils % 0.8 % (0.1-2.0); Eosinophils # 0.7 K/mm3 (0.0-0.4); Eosinophils % 7.3 % (0.1-12.0); Hematocrit 42.1 % (42.0-52.0); Hemoglobin 13.8 g/dL (14.1-18.0); Lymphocytes # 2.6 K/mm3 (0.7-4.5); Lymphocytes % 26.7 % (10-50); Mean Corpuscular HGB Conc 32.8 g/dL (31.8-35.4); Mean Corpuscular Hemoglobin 32.3 pg (27.0-31.2); Mean Corpuscular Volume 98.5 fl (80-94); Mean Platelet Volume 8.5 fl (7.4-10.4); Monocytes # 0.6 K/mm3 (0.1-1.0); Monocytes % 5.6 % (1.7-9.3); Neutrophils # 5.9 K/mm3 (1.8-7.8); Neutrophils % 59.5 % (37.0-80.0); Platelet Count 241 K/mm3 (142-424); Red Blood Count 4.27 M/mm3 (4.60-6.20); Red Cell Distribution Width 14.6 % (11.5-17.5); White Blood Count 9.9 K/mm3 (4.8-10.8)
[2020-09-18 16:32] LABS: Alanine Aminotransferase 18 U/L (12-78); Albumin/Globulin Ratio 1.4 (1.1-1.8); Alkaline Phosphatase 103 U/L (38-126); Anion Gap 11.1 mEq/L (5-15); Aspartate Amino Transferase 28 U/L (17-59); Bilirubin,Total 0.4 mg/dl (0.2-1.3); Blood Urea Nitrogen 21 mg/dl (9-20); Calcium 9.8 mg/dl (8.4-10.2); Carbon Dioxide 33 mmol/L (22.0-30.0); Chloride 103 mmol/L (98-107); Estimated Glomerular Filt Rate 64 ml/min (>60); GFR (African American) 78 ML/MIN (>60); Globulin 2.9 g/dL (1.3-3.2); Glucose 66 mg/dl (74-100); Potassium 5.1 mmoL/L (3.5-5.1); Sodium 142 mmol/L (136-145); Total Protein,Serum 6.9 g/dl (6.3-8.2)
== END ==
PROVIDERS: Visit Provider Nurse Practitioner Family
DX: R58 Hemorrhage, not elsewhere classified (principal); L29.9 Pruritus, unspecified
CPT/HCPCS: 36415; 80053; 85025

== ENCOUNTER 2021-05-02 20:53 | Emergency (ER) | payer MEDICARE, SELFPAY ==
[2021-05-02 21:05] VITALS: BP 0/0; PULSE 0; RESP 0; TEMP -17.7; TEMP 0; O2SAT 0
== END 2021-05-02 21:06 | disposition left against medical advice (07) ==
PROVIDERS: Emergency Provider Emergency Medicine; PCP Internal Medicine Adolescent Medicine
DX: S41.101A Unspecified open wound of right upper arm, initial encounter (principal); Z53.21 Procedure and treatment not carried out due to patient leaving prior to being seen by health care provider; I10 Essential (primary) hypertension; I25.10 Atherosclerotic heart disease of native coronary artery without angina pectoris; E78.5 Hyperlipidemia, unspecified; I73.9 Peripheral vascular disease, unspecified; Z79.02 Long term (current) use of antithrombotics/antiplatelets; Z79.51 Long term (current) use of inhaled steroids; Z79.82 Long term (current) use of aspirin; Z79.899 Other long term (current) drug therapy; Z86.73 Personal history of transient ischemic attack (TIA), and cerebral infarction without residual deficits; Z95.5 Presence of coronary angioplasty implant and graft; Z95.1 Presence of aortocoronary bypass graft
CPT/HCPCS: 99211

== ENCOUNTER 2021-08-24 13:11 | Emergency (ER) | payer MEDICARE, OTHER, SELFPAY ==
--- NOTE | 2021-08-24 13:28 | ECG_ITS ---
APPROVED REPORT Exam: Resting ECG HR:65 bpm ECG Measurements Heart Rate 65 AXES PA 143 P 68 QRSd 86 QRS 27 QT 409 T 72 QTc 420 Conclusion SINUS RHYTHM POSSIBLE LEFT ATRIAL ENLARGEMENT [-0.1mV P-WAVE IN V1/V2] BORDERLINE ECG UNCONFIRMED REPORT Electronically signed by : Octavio Yu MD 08/26/2021 21:49:45
[2021-08-24 13:30] VITALS: BP 148/78; BP 163/75; PULSE 65; PULSE 67; RESP 17; RESP 18; TEMP 36.8; O2SAT 100; BMI 19.9
[2021-08-24 13:53] VITALS: BMI 19.9
--- NOTE | 2021-08-24 13:54 | XR_ITS ---
PROCEDURE INFORMATION: Exam: XR Chest Exam date and time: 08/24/2021 2:05 PM Age: 80 years old Clinical indication: Other: Weakness; Prior surgery; Surgery date: 6+ months; Surgery type: Quadruple bypass, angioplasty; Additional info: General weakness TECHNIQUE: Imaging protocol: Radiologic exam of the chest. Views: 1 view. COMPARISON: CT CHEST W CON 09/12/2019 1:25 PM FINDINGS: Lungs: Hyperlucent changes are demonstrated. Increase in the lung volumes is demonstrated. Pleural spaces: Unremarkable. No pleural effusion. No pneumothorax. Heart/Mediastinum: Unremarkable. No cardiomegaly. Vasculature: Ectasia of the aortic arch. Diaphragm: There is flattening of the hemidiaphragms. Bones/joints: Chronic posttraumatic right rib deformities at the approximate level of the 6th and 7th ribs. Sternotomy residuals. IMPRESSION: Findings compatible chronic obstructive pulmonary disease.
--- NOTE | 2021-08-24 13:57 | PC.NURSE ---
pt has 1+ edema to lower extremities with + pedal pulses
[2021-08-24 13:59] LABS: Microscopic, Urine URINE MICROSCOPIC (MICROSCOPIC)
[2021-08-24 14:00] VITALS: BP 172/79; PULSE 66; RESP 18; O2SAT 99
[2021-08-24 14:01] LABS: Coronavirus 19, PCR Not Detected (NotDetected)
[2021-08-24 14:02] LABS: Influenza A, PCR Not Detected (NotDetected); Influenza B, PCR Not Detected (NotDetected)
[2021-08-24 14:03] LABS: Appearance,Urine CLEAR (Clear); Bilirubin,Urine Negative (Negative); Blood, Urine 3+ (Negative); Color,Urine YELLOW (Yellow); Glucose,Urine (UA) Negative (Negative); Ketones,Urine Negative (Negative); Leukocyte Esterase,Urine Negative (Negative); Nitrate,Urine Negative (Negative); Protein,Urine 1+ (Negative); Specific Gravity, Urine 1.015 (1.005-1.030); Urobilinogen,Urine 0.2 EU/dl (0.2)
[2021-08-24 14:05] LABS: Chloride 102 mmol/L (98-107)
[2021-08-24 14:06] LABS: Potassium 3.8 mmoL/L (3.5-5.1); Sodium 137 mmol/L (136-145)
[2021-08-24 14:09] LABS: Anion Gap 9.8 mEq/L (5-15); Blood Urea Nitrogen 12 mg/dl (9-20); Calcium 9.9 mg/dl (8.4-10.2); Carbon Dioxide 29 mmol/L (22.0-30.0); Creatinine Clearance Estimated 41 mL/min (50-200); Estimated Glomerular Filt Rate 58 ml/min (>60); GFR (African American) 70 ML/MIN (>60); Glucose 110 mg/dl (74-100)
[2021-08-24 14:13] LABS: Lactic Acid 0.9 mmol/L (0.7-2.1)
--- NOTE | 2021-08-24 14:16 | HMH.EDWEAK ---
ED Disposition Clinical Impression: Tobacco dependence syndrome, PAD (peripheral artery disease) COPD (chronic obstructive pulmonary disease) Qualifiers: COPD type: unspecified COPD Qualified Code(s): J44.9 - Chronic obstructive pulmonary disease, unspecified Hematuria Qualifiers: Hematuria type: unspecified type Qualified Code(s): R31.9 - Hematuria, unspecified Disposition: Home, Self-Care Condition on Discharge: Good Instructions: Peripheral Artery Disease Additional Instructions: fluids and see pcp next week Referrals: Brian Kaba MD [Primary Care Provider] - - Critical Care Critical Care Time: No Attestation: On 08/24/21, the high probability of a clinically significant, sudden or life threatening deterioration of the following system(s) required my full and direct attention, intervention and personal management. The time I documented below is in addition to time spent performing reported procedures but includes the following listed in this critical care notation. Medical Decision Making - Medical Records Medical records reviewed: Yes: I reviewed the patient's medical records. - Dante Inquiry Pt receiving controlled substance: No Vital Signs: 08/24/21 13:30 Temperature 98.2 F Temperature Source Oral Pulse Rate [Left Radial] 67 Respiratory Rate 17 Blood Pressure [Right Arm] 163/75 H Blood Pressure Mean [Right Arm] 104 02 Sat by Pulse Oximetry 100 Oxygen Delivery Method Room Air - Lab Data Lab results reviewed: Yes: I reviewed the patient's lab results. Lab Results 08/24/21 13:16: Urine Color Yellow, Urine Appearance Clear, Urine pH 6.0, Ur Specific [place] 1.015, Urine Protein 1+, Urine Glucose (UA) Negative, Urine Ketones Negative, Urine Blood 3+, Urine Nitrate Negative, Urine Bilirubin Negative, Urine Urobilinogen 0.2, Ur Leukocyte Esterase Negative, Urine RBC 50-100, Urine WBC 3-5, Ur Squamous Epith Cells Occasional, Urine Bacteria Trace 08/24/21 13:25: WBC 7.0, RBC 4.18 L, Hgb 11.4 L, Hct 37.1 L, MCV 88.8, MCH 27.3, MCHC 30.7 L, RDW 15.8, Plt Count 315, MPV 8.2, Neut % (Auto) 62.3, Lymph % (Auto) 26.2, [place] % (Auto) 6.3, Eos % (Auto) 4.3, Baso % (Auto) 1.0, Neut # (Auto) 4.4, Lymph # (Auto) 1.8, [place] # (Auto) 0.4, Eos # (Auto) 0.3, Baso # (Auto) 0.1 08/24/21 13:25: Sodium 137, Potassium 3.8, Chloride 102, Carbon Dioxide 29, Anion Gap 9.8, BUN 12, Creatinine 1.20, Estimated Creat Clear 41, Estimated GFR 58 L, Est GFR ( Amer) 70, Glucose 110 H, Calcium 9.9, Troponin I < 0.01 08/24/21 13:25: NT-Pro-B Natriuret Pep 545 H 08/24/21 13:25: Lactate 0.9 08/24/21 13:30: SARS-CoV-2 (PCR) Not detected, Influenza A Untype (PCR) Not detected, Influenza Type B (PCR) Not detected Result diagrams: 08/24/21 13:25 08/24/21 13:25 Orders (Tests/Meds): ED MEDICATIONS Generic Name Dose Route Start Last Admin Trade Name Freq PRN Reason Stop Dose Admin Sodium Chloride 10 ml 08/24/21 13:55 Sodium Chloride 0.9% 10ml Flush Syringe IV 09/23/21 13:54 NEEDED PRN Maintain IV Site Discontinued Medications Generic Name Dose Route Start Last Admin Trade Name Freq PRN Reason Stop Dose Admin Sodium Chloride 1,000 mls @ 999 mls/hr 08/24/21 14:00 08/24/21 13:56 Sod Chlor 0.9% 1000ml Bag IV 08/24/21 15:00 999 mls/hr .Q1H1M PEDRO Administration Tramadol HCl 50 mg 08/24/21 13:55 08/24/21 13:56 Tramadol 50mg Tablet PO 08/24/21 13:56 50 mg ONCE ONE Administration ORDERS Category Date Time Status Troponin I Q3H Lab 08/24/21 17:00 Ordered Troponin I Q3H Lab 08/24/21 20:00 Ordered Blood Culture Stat Micro 08/24/21 13:25 Received - Radiology Data #1 Image(s): Chest Image Reviewed: Yes I have reviewed radiologist's interpretation Preliminary Findings: Abnormal - ECG Data Tracing #1 Normal Sinus Rhythm: Yes Ischemic changes: non-specific ST-T wave changes - RUFUS Score for Non-Stemi Age of Patient: 80-89 years old Heart Rate: 50-69 bpm
[2021-08-24 14:18] LABS: Bacteria,Urine Trace /lpf; RBC,Urine 50-100 #/hpf (0-3); Squamous Epithelial Cell,Urine Occasional #/hpf (0-5)
[2021-08-24 14:19] LABS: NT Pro Brain Natriuretic Pep. 545 pg/mL (0-450)
[2021-08-24 14:20] LABS: Basophils # 0.1 K/mm3 (0-0.2); Eosinophils # 0.3 K/mm3 (0.0-0.4); Eosinophils % 4.3 % (0.1-12.0); Hematocrit 37.1 % (42.0-52.0); Hemoglobin 11.4 g/dL (14.1-18.0); Lymphocytes # 1.8 K/mm3 (0.7-4.5); Lymphocytes % 26.2 % (10-50); Mean Corpuscular HGB Conc 30.7 g/dL (31.8-35.4); Mean Corpuscular Hemoglobin 27.3 pg (27.0-31.2); Mean Corpuscular Volume 88.8 fl (80-94); Mean Platelet Volume 8.2 fl (7.4-10.4); Monocytes # 0.4 K/mm3 (0.1-1.0); Monocytes % 6.3 % (1.7-9.3); Neutrophils # 4.4 K/mm3 (1.8-7.8); Neutrophils % 62.3 % (37.0-80.0); Platelet Count 315 K/mm3 (142-424); Red Blood Count 4.18 M/mm3 (4.60-6.20); Red Cell Distribution Width 15.8 % (11.5-17.5)
[2021-08-24 14:22] LABS: Troponin I < 0.01 ng/ml (0.00-0.034)
[2021-08-24 14:30] VITALS: BP 168/71; PULSE 72; RESP 18; O2SAT 100
[2021-08-24 15:01] VITALS: BP 174/81; PULSE 65; RESP 18; O2SAT 99
[2021-08-24 15:53] VITALS: BP 143/72; PULSE 68; RESP 16; TEMP 36.6; O2SAT 98
== END 2021-08-24 15:54 | disposition home or self-care (01) ==
PROVIDERS: Emergency Provider Emergency Medicine; PCP Internal Medicine Adolescent Medicine
DX: J44.9 Chronic obstructive pulmonary disease, unspecified (principal); I73.9 Peripheral vascular disease, unspecified; F17.210 Nicotine dependence, cigarettes, uncomplicated; I25.10 Atherosclerotic heart disease of native coronary artery without angina pectoris; I25.2 Old myocardial infarction; I10 Essential (primary) hypertension
CPT/HCPCS: 71045; 80048; 81001; 83605; 83880; 84484; 85025; 87040; 93005; 96360; 99284; C9803; U0003; U0005

== ENCOUNTER 2021-09-20 07:52 | Emergency (ER) | payer MEDICARE, OTHER, SELFPAY ==
[2021-09-20 07:54] VITALS: BP 137/94; BP 169/99; PULSE 59; PULSE 76; RESP 16; TEMP 36.5; O2SAT 100; O2SAT 98; BMI 19.2
--- NOTE | 2021-09-20 07:59 | CT_ITS ---
FINAL REPORT CLINICAL HISTORY: FALL, pain FINDINGS: Axial CT images of the cervical spine were obtained without contrast. Sagittal and coronal reformatted images were also obtained. This study was performed with techniques to keep radiation doses as low as reasonably achievable (ALARA). Individualized dose reduction techniques using automated exposure control or adjustment of mA and/or kV according to the patient''s size were employed. There is no evidence of fracture or dislocation. Moderate degenerative changes are present. There is multilevel neural foraminal narrowing, greatest at C5-6 with mild central canal stenosis at this level. IMPRESSION: No fracture or acute bony abnormality identified. Reviewed, Interpreted and Dictated by Chente Gross III, MD Transcribed by Rosalie Rodgers Authenticated and [facility]
--- NOTE | 2021-09-20 07:59 | CT_ITS ---
FINAL REPORT CLINICAL HISTORY: HEAD INJURY. fall hit head. small lac on head(jr placed). FINDINGS: Axial images of the head were obtained without contrast. Coronal reformatted images were also obtained. This study was performed with techniques to keep radiation doses as low as reasonably achievable (ALARA). Individualized dose reduction techniques using automated exposure control or adjustment of mA and/or kV according to the patient''s size were employed. There is generalized age-appropriate atrophy. Periventricular low-attenuation areas are seen consistent with moderate chronic ischemic changes. There is a small high attenuation focus in the left periventricular region, favor calcification over small focus of hemorrhage. There is no evidence of acute infarct. There is no evidence of shift of the midline structures. No skull abnormality is seen on the bone window images. IMPRESSION: Atrophy and moderate periventricular chronic ischemic changes. Small focus in the left periventricular region, favor calcification over small focus of hemorrhage. Follow-up CT may be helpful. Reviewed, Interpreted and Dictated by Chente Gross III, MD Transcribed by Rosalie Rodgers Authenticated and [facility]
[2021-09-20 08:00] VITALS: BP 134/81; PULSE 74; RESP 16; O2SAT 99
--- NOTE | 2021-09-20 08:03 | PC.NURSE ---
Blood sent to lab and pt provided with a blanket at this time.
--- NOTE | 2021-09-20 08:05 | HMH.EDGENADL ---
ED Disposition Clinical Impression: Scalp laceration Qualifiers: Encounter type: initial encounter Qualified Code(s): S01.01XA - Laceration without foreign body of scalp, initial encounter Fall Qualifiers: Encounter type: initial encounter Qualified Code(s): W19.XXXA - Unspecified fall, initial encounter Disposition: Home, Self-Care Condition on Discharge: Good Instructions: DI for Laceration Repair -- [place], How to Prevent Falls, DI for Closed Head Injury Additional Instructions: Additional instructions for SCALP LACERATION: Clean the wound daily with soap and water. You may shower and shampoo your hair. Avoid submerging the wound. No swimming.. Apply a thin film of antibiotic ointment such as neosporin, polysporin, or triple antibiotic daily after showering. Be careful when combing or brushing hair so that you so not snag the jr with a comb or brush. See your primary care physician or return to the [facility] in 7 days for staple removal. The [facility] is open 9AM to 9 PM, 7 days a week. Return if any signs of infection including increasing pain, pus drainage, swelling, redness, red streaks, or fever. Additional instructions for HEAD INJURY: See your physician as soon as possible for further evaluation. Return immediately if severe headache, vomiting, problems with vision or speech, numbness or weakness of the extremities, or severe neck pain. Referrals: Provider,Referral, [Referring] - - Critical Care Critical Care Time: No Attestation: On 09/20/21, the high probability of a clinically significant, sudden or life threatening deterioration of the following system(s) required my full and direct attention, intervention and personal management. The time I documented below is in addition to time spent performing reported procedures but includes the following listed in this critical care notation. Medical Decision Making - Dante Inquiry Pt receiving controlled substance: No Vital Signs: 09/20/21 07:54 09/20/21 08:00 09/20/21 08:31 Temperature 97.7 F Temperature Source Oral Pulse Rate 59 L 74 73 Pulse Rate [Radial] 76 Respiratory Rate 16 16 16 Blood Pressure 137/94 H 134/81 153/83 H Blood Pressure [Right Arm] 169/99 H Blood Pressure Mean 101 102 Blood Pressure Mean [Right Arm] 122 Blood Pressure Position [Right Arm] Sitting 02 Sat by Pulse Oximetry 100 99 98 Oxygen Delivery Method Room Air Room Air 09/20/21 08:53 Temperature Temperature Source Pulse Rate 81 Pulse Rate [Radial] Respiratory Rate 15 Blood Pressure 176/86 H Blood Pressure [Right Arm] Blood Pressure Mean 112 Blood Pressure Mean [Right Arm] Blood Pressure Position [Right Arm] 02 Sat by Pulse Oximetry 98 Oxygen Delivery Method Room Air - Lab Data Lab Results 09/20/21 08:00: WBC 8.1, RBC 4.24 L, Hgb 12.3 L, Hct 38.0 L, MCV 89.5, MCH 29.1, MCHC 32.5, RDW 19.3 H, Plt Count 253, MPV 8.1, Neut % (Auto) 66.7, Lymph % (Auto) 22.5, [place] % (Auto) 6.8, Eos % (Auto) 3.6, Baso % (Auto) 0.4, Neut # (Auto) 5.4, Lymph # (Auto) 1.8, [place] # (Auto) 0.6, Eos # (Auto) 0.3, Baso # (Auto) 0.0 09/20/21 08:00: Sodium 136, Potassium 4.0, Chloride 100, Carbon Dioxide 29, Anion Gap 11.0, BUN 13, Creatinine 1.30 H, Estimated Creat Clear 38, Estimated GFR 53 L, Est GFR ( Amer) 64, Glucose 97, Calcium 9.9, Total Bilirubin 0.4, AST 39, ALT 23, Alkaline Phosphatase 85, Total Protein 6.5, Albumin 3.7, Globulin 2.8, Albumin/Globulin Ratio 1.3 Result diagrams: 09/20/21 08:00 09/20/21 08:00 Orders (Tests/Meds): ED MEDICATIONS Discontinued Medications Generic Name Dose Route Start Last Admin Trade Name Freq PRN Reason Stop Dose Admin Lidocaine/Epinephrine 2 ml 09/20/21 08:10 Lidocaine 1% W/Epi 1:100,000 20ml Vial SQ 09/20/21 08:11 ONCE ONE Tetanus/Reduced Diphtheria/Acell Pertussis 0.5 ml 09/20/21 08:01 09/20/21 08:12 Tet/Diphth/Pert-Adult 0.5ml Syringe IM 09/20/21 0
[2021-09-20 08:08] LABS: Basophils % 0.4 % (0.1-2.0); Eosinophils # 0.3 K/mm3 (0.0-0.4); Eosinophils % 3.6 % (0.1-12.0); Hemoglobin 12.3 g/dL (14.1-18.0); Lymphocytes # 1.8 K/mm3 (0.7-4.5); Lymphocytes % 22.5 % (10-50); Mean Corpuscular HGB Conc 32.5 g/dL (31.8-35.4); Mean Corpuscular Hemoglobin 29.1 pg (27.0-31.2); Mean Corpuscular Volume 89.5 fl (80-94); Mean Platelet Volume 8.1 fl (7.4-10.4); Monocytes # 0.6 K/mm3 (0.1-1.0); Monocytes % 6.8 % (1.7-9.3); Neutrophils # 5.4 K/mm3 (1.8-7.8); Neutrophils % 66.7 % (37.0-80.0); Platelet Count 253 K/mm3 (142-424); Red Blood Count 4.24 M/mm3 (4.60-6.20); Red Cell Distribution Width 19.3 % (11.5-17.5); White Blood Count 8.1 K/mm3 (4.8-10.8)
--- NOTE | 2021-09-20 08:08 | PC.NURSE ---
at bedside assessing head wound at this time.
[2021-09-20 08:17] LABS: Alanine Aminotransferase 23 U/L (12-78); Albumin Level 3.7 g/dl (3.5-5.0); Albumin/Globulin Ratio 1.3 (1.1-1.8); Alkaline Phosphatase 85 U/L (38-126); Aspartate Amino Transferase 39 U/L (17-59); Bilirubin,Total 0.4 mg/dl (0.2-1.3); Blood Urea Nitrogen 13 mg/dl (9-20); Calcium 9.9 mg/dl (8.4-10.2); Carbon Dioxide 29 mmol/L (22.0-30.0); Chloride 100 mmol/L (98-107); Creatinine Clearance Estimated 38 mL/min (50-200); Estimated Glomerular Filt Rate 53 ml/min (>60); GFR (African American) 64 ML/MIN (>60); Globulin 2.8 g/dL (1.3-3.2); Glucose 97 mg/dl (74-100); Sodium 136 mmol/L (136-145); Total Protein,Serum 6.5 g/dl (6.3-8.2)
--- NOTE | 2021-09-20 08:25 | PC.NURSE ---
repairing lac on head
[2021-09-20 08:31] VITALS: BP 153/83; PULSE 73; RESP 16; O2SAT 98
--- NOTE | 2021-09-20 08:32 | PC.NURSE ---
echo technologist at bedside taking patient back for a CT
--- NOTE | 2021-09-20 08:47 | PC.NURSE ---
PT returned from rad at this time.
--- NOTE | 2021-09-20 08:47 | PC.NURSE ---
r and d lab technician rolling patient back into his room and hooking pt. back up to vitals.
--- NOTE | 2021-09-20 08:50 | PC.NURSE ---
Nurse at bedside giving immunization
[2021-09-20 08:53] VITALS: BP 176/86; PULSE 81; RESP 15; O2SAT 98
--- NOTE | 2021-09-20 08:54 | PC.NURSE ---
DAUGHTER AT BEDSIDE UPDATED ON PLAN OF CARE
[2021-09-20 09:00] VITALS: BP 155/99; PULSE 85; RESP 15; O2SAT 98
--- NOTE | 2021-09-20 09:00 | PC.NURSE ---
Went in to round on patient. Patient stated he would like to stand up. I helped patient up to the side of the bed and helped patient to stand up. He said his legs were going numb so he needed to stand for a second. Helped patient sit back down on the side of the bed. Family member stated she would remain at bedside next to him so he could sit on the edge of the bed. Call light within reach. Patient and family member need nothing at this time.
--- NOTE | 2021-09-20 09:24 | PC.NURSE ---
Tomer Martin at bedside cleaning patient up
--- NOTE | 2021-09-20 09:27 | PC.NURSE ---
ATTEMPTED TO CLEAN DRY BLOOD FROM PT'S FACE. PT STATES I'LL JUST GET IT WHEN I GET HOME .
--- NOTE | 2021-09-20 09:33 | PC.NURSE ---
Tomer Martin at bedside explaining to patient and family member about his discharge information and taking out patient's IV.
[2021-09-20 09:34] VITALS: BP 139/84; PULSE 78; RESP 18; TEMP 36.9; O2SAT 99
== END 2021-09-20 09:36 | disposition home or self-care (01) ==
PROVIDERS: Emergency Provider Emergency Medicine; PCP Internal Medicine Adolescent Medicine
DX: S01.81XA Laceration without foreign body of other part of head, initial encounter (principal); R00.2 Palpitations; R63.4 Abnormal weight loss; I10 Essential (primary) hypertension; I25.10 Atherosclerotic heart disease of native coronary artery without angina pectoris; I77.4 Celiac artery compression syndrome; I77.1 Stricture of artery; I65.23 Occlusion and stenosis of bilateral carotid arteries; I73.9 Peripheral vascular disease, unspecified; I25.2 Old myocardial infarction; E78.5 Hyperlipidemia, unspecified; R09.89 Other specified symptoms and signs involving the circulatory and respiratory systems; F17.210 Nicotine dependence, cigarettes, uncomplicated; Z79.02 Long term (current) use of antithrombotics/antiplatelets; Z79.1 Long term (current) use of non-steroidal anti-inflammatories (NSAID); Z79.51 Long term (current) use of inhaled steroids; Z79.82 Long term (current) use of aspirin; Z79.899 Other long term (current) drug therapy; Z95.5 Presence of coronary angioplasty implant and graft; Z95.1 Presence of aortocoronary bypass graft; Z68.1 Body mass index [BMI] 19.9 or less, adult; Z86.73 Personal history of transient ischemic attack (TIA), and cerebral infarction without residual deficits; Z23 Encounter for immunization; Z85.118 Personal history of other malignant neoplasm of bronchus and lung; Z80.9 Family history of malignant neoplasm, unspecified; W17.89XA Other fall from one level to another, initial encounter; Y92.002 Bathroom of unspecified non-institutional (private) residence as the place of occurrence of the external cause
CPT/HCPCS: 12001; 70450; 72125; 80053; 85025; 90471; 90715; 99285

== ENCOUNTER 2022-06-08 22:52 | Emergency (ER) | payer MEDICARE, OTHER, SELFPAY ==
[2022-06-08 22:54] VITALS: BP 148/87; PULSE 78; RESP 17; TEMP 36.9; O2SAT 95
[2022-06-08 23:21] LABS: Basophils # 0.1 K/mm3 (0-0.2); Basophils % 0.6 % (0.1-2.0); Chloride 100 mmol/L (98-107); Eosinophils # 0.6 K/mm3 (0.0-0.4); Eosinophils % 6.1 % (0.1-12.0); Hemoglobin 14.6 g/dL (14.1-18.0); Lymphocytes % 31.2 % (10-50); Mean Corpuscular HGB Conc 31.1 g/dL (31.8-35.4); Mean Corpuscular Hemoglobin 31.1 pg (27.0-31.2); Mean Corpuscular Volume 99.8 fl (80-94); Mean Platelet Volume 9.1 fl (7.4-10.4); Monocytes # 0.7 K/mm3 (0.1-1.0); Monocytes % 7.1 % (1.7-9.3); Neutrophils # 5.3 K/mm3 (1.8-7.8); Platelet Count 276 K/mm3 (142-424); Red Blood Count 4.71 M/mm3 (4.60-6.20); Red Cell Distribution Width 13.7 % (11.5-17.5); Sodium 139 mmol/L (136-145); White Blood Count 9.6 K/mm3 (4.8-10.8)
[2022-06-08 23:22] LABS: Potassium 3.8 mmoL/L (3.5-5.1)
--- NOTE | 2022-06-08 23:22 | HMH.EDUROGM ---
Discharge Plan Disposition Patient Disposition: Home, Self-Care Chief Complaint: Urogenital-Male Prescriptions Prescriptions: No Action atorvastatin 10 mg tablet 10 mg PO DAILY clopidogrel 75 mg tablet 75 mg PO DAILY Label Comments: TAKE 1 TABLET BY MOUTH EVERY DAY tramadol 50 mg tablet 50 mg PO Q8 pantoprazole 40 mg tablet,delayed release (DR/EC) 40 mg PO DAILY Label Comments: TAKE 1 TABLET BY MOUTH EVERY DAY ferrous sulfate 325 mg (65 mg iron) Tablet 325 mg PO DAILY aspirin 81 mg Tablet 81 mg PO DAILY albuterol sulfate 90 mcg/actuation HFA aerosol inhaler 2 inh INHALATION Q8 PRN (Reason: Cough) Senna Plus 8.6-50 mg Capsule 1 tab-cap PO BID PRN (Reason: Constipation) Referrals Follow up/Referrals: Octavio Yu MD [Primary Care Provider] - See instructions Ric Gurrola MD [Referring] - See instructions Clinical Impressions Clinical Impression: Hematuria, Mass of urinary bladder Instructions Patient Instructions: DI for Hematuria Discharge ED Provider: Demar (ED),Roberto Hendrix Male Urogenital HPI General Chief complaint: Urogenital-Male Stated complaint: Bleeding from kidneya Time Seen by Provider: 06/08/22 23:10 Mode of Arrival: Ambulatory Source of Information: Patient and Medical Record Limitations: No Limitations Description of Symptoms (Recalled from ER Triage Doc. by RN): 81 M presents from home with his daughter. Patient reports around 929 this date he noticed there was blood coming from his kdineys and other stuff. Patient describes hematuria without dysuria or pain in general. History of Present Illness HPI Narrative: acute onset ot painless gross hematuria which started today - no anti-coag - no dysuria Complaint: other (hematuria) Onset (ago): hour(s) Duration: constant Severity: moderate Reports denies other symptoms Related Data Home Medications Medication Instructions Recorded Confirmed albuterol sulfate 90 mcg/actuation 2 inh inhalation Q8 PRN Cough 06/08/22 06/08/22 aerosol inhaler aspirin 81 mg tablet 81 mg PO DAILY Heart health 06/08/22 06/08/22 atorvastatin 10 mg tablet 10 mg PO DAILY Cholesterol 06/08/22 06/08/22 clopidogrel 75 mg tablet 75 mg PO DAILY Blood thinner 06/08/22 06/08/22 ferrous sulfate 325 mg (65 mg 325 mg PO DAILY Supplement 06/08/22 06/08/22 iron) tablet pantoprazole 40 mg tablet,delayed 40 mg PO DAILY Acid reflux 06/08/22 06/08/22 release sennosides 8.6 mg-docusate sodium 1 tab-cap PO BID PRN Constipation 06/08/22 06/08/22 50 mg capsule (Senna Plus) tramadol 50 mg tablet 50 mg PO Q8 Chronic pain 06/08/22 06/08/22 Allergies Allergy/AdvReac Type Severity Reaction Status Date / Time No Known Allergies Allergy Verified 08/15/20 11:06 [facility] Disclaimer: The information contained in this section may have been updated after the patient was seen, as this information can be updated by other users. Medical History (Updated 06/09/22 @ 01:24 by Roberto Benz (ED)MD) Bilateral carotid artery stenosis Bradycardia CAD (coronary artery disease) Celiac artery stenosis Claudication HLD (hyperlipidemia) HTN (hypertension) Hx of cancer of lung Hx-TIA (transient ischemic attack) Left carotid bruit Superior mesenteric artery stenosis Tobacco dependence syndrome Weight loss Surgical History History of coronary artery stent placement History of right-sided carotid endarterectomy Hx of CABG Social History Smoking Status: Former smoker alcohol intake: never substance use type: denies use current occupational status: other Travel in the last 8 weeks: None household members: spouse housing: house current occupational exposures/hazards: No caffeine: No ROS Obtained: Yes All systems reviewed & no additional complaints except as documented
[2022-06-08 23:24] LABS: Alanine Aminotransferase 17 U/L (12-78); Albumin Level 4.1 g/dl (3.5-5.0); Albumin/Globulin Ratio 1.4 (1.1-1.8); Alkaline Phosphatase 124 U/L (38-126); Anion Gap 9.8 mEq/L (5-15); Aspartate Amino Transferase 32 U/L (17-59); Bilirubin,Total 0.4 mg/dl (0.2-1.3); Blood Urea Nitrogen 11 mg/dl (9-20); Carbon Dioxide 33 mmol/L (22.0-30.0); Creatinine Clearance Estimated 39 mL/min (50-200); Estimated Glomerular Filt Rate 53 ml/min (>60); GFR (African American) 64 ML/MIN (>60); Total Protein,Serum 7.1 g/dl (6.3-8.2)
[2022-06-08 23:25] LABS: Calcium 9.4 mg/dl (8.4-10.2); Glucose 79 mg/dl (74-100); INR 1.04 (0.9-1.1); Prothrombin Time 11.2 seconds (10.1-12.5)
[2022-06-08 23:30] VITALS: BP 130/67; PULSE 57; RESP 16; O2SAT 95
--- NOTE | 2022-06-08 23:43 | CT_ITS ---
PROCEDURE INFORMATION: Exam: CT Abdomen And Pelvis With Contrast Exam date and time: 06/09/2022 12:03 AM Age: 81 years old Clinical indication: Other: Hematuria TECHNIQUE: Imaging protocol: Computed tomography of the abdomen and pelvis with contrast. Radiation optimization: All CT scans at this facility use at least one of these dose optimization techniques: automated exposure control; mA and/or kV adjustment per patient size (includes targeted exams where dose is matched to clinical indication); or iterative reconstruction. Contrast material: ISOVUE; Contrast volume: 75 ml; Contrast route: IV; REPORTING DATA: Count of CT and Cardiac NM exams in prior 12 months: This patient has received 2 known CTs and 0 known cardiac nuclear medicine studies in the 12 months prior to the current study. COMPARISON: CT ABDOMEN PELVIS WO CON 07/31/2020 11:27 AM FINDINGS: Lungs: Chronic emphysematous changes are noted at the lung bases. No consolidation. Pleural spaces: Chronic pleural calcifications seen along the right diaphragmatic surface. Liver: Normal liver. Gallbladder and bile ducts: Status post cholecystectomy. No biliary dilatation. Pancreas: Normal pancreas. No ductal dilation. Spleen: Tiny calcified granuloma in the spleen. Otherwise unremarkable. Adrenal glands: Adrenal glands are normal. Kidneys and ureters: No hydronephrosis or calculus. Multiple renal cysts; no routine follow-up recommended. Stomach and bowel: No acute bowel abnormality. No obstruction. No mucosal thickening. Appendix: Appendix is not seen, however, there is no evidence of appendicitis. Intraperitoneal space: No free fluid or free air. Vasculature: Postoperative changes status post interval endovascular repair of an abdominal aortic aneurysm. No definite evidence of an endoleak. Maximal external diameter the abdominal aortic aneurysm sac is 4.1 cm. Lymph nodes: Unremarkable. No enlarged lymph nodes. Urinary bladder: Unremarkable as visualized. Reproductive: Prostate gland is grossly unremarkable. Bones/joints: Stable small sclerotic focus in the right iliac bone, most likely a benign bone island. No evidence of osseous metastatic disease. No acute fracture. Soft tissues: A 2.0 x 2.4 cm soft tissue density noted along the posterior wall of the urinary bladder, just to the left of midline. IMPRESSION: 1. A 2.0 x 2.4 cm soft tissue density noted along the posterior wall of the urinary bladder, just to the left of midline. Could represent clot, but is concerning for possible bladder neoplasm. 2. Multiple renal cysts. 3. Postoperative changes status post interval endovascular repair of an abdominal aortic aneurysm. No definite evidence of an endoleak.
[2022-06-09 00:19] LABS: Microscopic, Urine URINE MICROSCOPIC (MICROSCOPIC)
[2022-06-09 00:25] LABS: Appearance,Urine TURBID (Clear); Bilirubin,Urine Negative (Negative); Blood, Urine 3+ (Negative); Color,Urine RED (Yellow); Glucose,Urine (UA) Negative (Negative); Ketones,Urine TRACE (Negative); Leukocyte Esterase,Urine 1+ (Negative); Nitrate,Urine POSITIVE (Negative); Protein,Urine 3+ (Negative)
[2022-06-09 00:31] VITALS: BP 157/81; PULSE 66; O2SAT 99
[2022-06-09 00:40] LABS: Bacteria,Urine Trace /lpf; RBC,Urine TNTC #/hpf (0-3); Squamous Epithelial Cell,Urine Occasional #/hpf (0-5)
[2022-06-09 01:18] VITALS: BP 157/80; PULSE 68; RESP 18; TEMP 36.6; O2SAT 98
[2022-06-09 02:13] LABS: Prostate Specific Ag Screen 2.3 ng/ml (0.0-4.0)
== END 2022-06-09 01:29 | disposition home or self-care (01) ==
PROVIDERS: Emergency Provider Emergency Medicine; PCP Internal Medicine Adolescent Medicine
DX: R31.9 Hematuria, unspecified (principal); D49.4 Neoplasm of unspecified behavior of bladder; Z87.891 Personal history of nicotine dependence
CPT/HCPCS: 74177; 80053; 81001; 85025; 85610; 87086; 99284; 99285; G0103; Q9967

== ENCOUNTER 2022-06-10 22:20 | Emergency (ER) | payer MEDICARE, OTHER, SELFPAY ==
[2022-06-10 22:20] VITALS: BP 129/83; PULSE 83; RESP 17; TEMP 36.7; O2SAT 98
[2022-06-10 22:30] VITALS: BP 149/83; PULSE 78; O2SAT 98
[2022-06-10 22:47] LABS: Basophils % 0.3 % (0.1-2.0); Eosinophils # 0.3 K/mm3 (0.0-0.4); Eosinophils % 3.3 % (0.1-12.0); Hematocrit 42.3 % (42.0-52.0); Hemoglobin 13.2 g/dL (14.1-18.0); Lymphocytes # 1.7 K/mm3 (0.7-4.5); Lymphocytes % 19.4 % (10-50); Mean Corpuscular HGB Conc 31.1 g/dL (31.8-35.4); Mean Corpuscular Hemoglobin 30.7 pg (27.0-31.2); Mean Corpuscular Volume 98.6 fl (80-94); Mean Platelet Volume 9.6 fl (7.4-10.4); Monocytes # 0.4 K/mm3 (0.1-1.0); Monocytes % 4.8 % (1.7-9.3); Neutrophils # 6.1 K/mm3 (1.8-7.8); Neutrophils % 72.2 % (37.0-80.0); Platelet Count 244 K/mm3 (142-424); Red Blood Count 4.29 M/mm3 (4.60-6.20); Red Cell Distribution Width 13.8 % (11.5-17.5); White Blood Count 8.5 K/mm3 (4.8-10.8)
[2022-06-10 22:51] LABS: Anion Gap 6.7 mEq/L (5-15); Blood Urea Nitrogen 11 mg/dl (9-20); Calcium 9.1 mg/dl (8.4-10.2); Carbon Dioxide 31 mmol/L (22.0-30.0); Chloride 100 mmol/L (98-107); Creatinine Clearance Estimated 39 mL/min (50-200); Estimated Glomerular Filt Rate 53 ml/min (>60); GFR (African American) 64 ML/MIN (>60); Glucose 101 mg/dl (74-100); Potassium 3.7 mmoL/L (3.5-5.1); Sodium 134 mmol/L (136-145)
[2022-06-10 22:53] LABS: Activated Partial Thrombo Time 28.8 seconds (22.8-30.6); INR 1.06 (0.9-1.1); Prothrombin Time 11.4 seconds (10.1-12.5)
[2022-06-10 22:54] LABS: Microscopic, Urine URINE MICROSCOPIC (MICROSCOPIC)
[2022-06-10 22:58] LABS: Appearance,Urine CLOUDY (Clear); Blood, Urine 3+ (Negative); Color,Urine RED (Yellow); Glucose,Urine (UA) TRACE (Negative); Ketones,Urine 1+ (Negative); Leukocyte Esterase,Urine 2+ (Negative); Nitrate,Urine POSITIVE (Negative); Protein,Urine 3+ (Negative)
[2022-06-10 23:01] VITALS: BP 163/86; PULSE 64; O2SAT 98
[2022-06-10 23:01] LABS: Bilirubin,Urine 2+ (Negative)
[2022-06-10 23:09] LABS: Bacteria,Urine Trace /lpf; RBC,Urine TNTC #/hpf (0-3); WBC,Urine Occasional #/hpf (0-3)
--- NOTE | 2022-06-10 23:13 | PC.NURSE ---
Eula blood noted while inserting catheter. 500mL total eula blood measured. Irrigated bladder with several large clots noted, followed by smaller. Bladder irrigated with 500mL using syringe. Clots still noted in irrigation. Will hang bladder irrigation at this time.
[2022-06-10 23:31] VITALS: BP 167/90; PULSE 77; O2SAT 99
[2022-06-10 23:45] VITALS: BP 168/91; PULSE 91; O2SAT 96
--- NOTE | 2022-06-10 23:57 | HMH.EDUROGM ---
Discharge Plan Disposition Patient Disposition: Home, Self-Care Chief Complaint: Urogenital-Male Prescriptions Prescriptions: No Action atorvastatin 10 mg tablet 10 mg PO DAILY clopidogrel 75 mg tablet 75 mg PO DAILY Label Comments: TAKE 1 TABLET BY MOUTH EVERY DAY tramadol 50 mg tablet 50 mg PO Q8 pantoprazole 40 mg tablet,delayed release (DR/EC) 40 mg PO DAILY Label Comments: TAKE 1 TABLET BY MOUTH EVERY DAY ferrous sulfate 325 mg (65 mg iron) Tablet 325 mg PO DAILY aspirin 81 mg Tablet 81 mg PO DAILY albuterol sulfate 90 mcg/actuation HFA aerosol inhaler 2 inh INHALATION Q8 PRN (Reason: Cough) Senna Plus 8.6-50 mg Capsule 1 tab-cap PO BID PRN (Reason: Constipation) Referrals Follow up/Referrals: Octavio Yu MD [Primary Care Provider] - See instructions Clinical Impressions Clinical Impression: Acute urinary retention, Hematuria Instructions Patient Instructions: DI for Hematuria Discharge ED Provider: Demar (ED),Roberto Hendrix Male Urogenital HPI General Chief complaint: Urogenital-Male Stated complaint: hematuria Time Seen by Provider: 06/10/22 23:57 Mode of Arrival: EMS Source of Information: Patient, Relative, EMS and Medical Record Limitations: No Limitations Description of Symptoms (Recalled from ER Triage Doc. by RN): 81 F presents from home via EMS for ongoing issues regarding hematuria, dysuria, and a spot on his bladder. Patient recently seen here a few days ago for this issue and discharged home. Nothing acute this evening History of Present Illness HPI Narrative: has hematuria and recent [facility] ed visit with possible bladder neoplasm - has dec urination and has clots and no fever - Complaint: other (hematuria ) Onset (ago): day(s) Duration: intermittent Severity: moderate Reports urinary retention and blood in urine Related Data Home Medications Medication Instructions Recorded Confirmed albuterol sulfate 90 mcg/actuation 2 inh inhalation Q8 PRN Cough 06/08/22 06/10/22 aerosol inhaler aspirin 81 mg tablet 81 mg PO DAILY Heart health 06/08/22 06/10/22 atorvastatin 10 mg tablet 10 mg PO DAILY Cholesterol 06/08/22 06/10/22 clopidogrel 75 mg tablet 75 mg PO DAILY Blood thinner 06/08/22 06/10/22 ferrous sulfate 325 mg (65 mg 325 mg PO DAILY Supplement 06/08/22 06/10/22 iron) tablet pantoprazole 40 mg tablet,delayed 40 mg PO DAILY Acid reflux 06/08/22 06/10/22 release sennosides 8.6 mg-docusate sodium 1 tab-cap PO BID PRN Constipation 06/08/22 06/10/22 50 mg capsule (Senna Plus) tramadol 50 mg tablet 50 mg PO Q8 Chronic pain 06/08/22 06/10/22 Allergies Allergy/AdvReac Type Severity Reaction Status Date / Time No Known Allergies Allergy Verified 08/15/20 11:06 [facility] Disclaimer: The information contained in this section may have been updated after the patient was seen, as this information can be updated by other users. Medical History (Updated 06/11/22 @ 01:20 by Roberto Benz (ED)MD) Bilateral carotid artery stenosis Bradycardia CAD (coronary artery disease) Celiac artery stenosis Claudication HLD (hyperlipidemia) HTN (hypertension) Hx of cancer of lung Hx-TIA (transient ischemic attack) Left carotid bruit Superior mesenteric artery stenosis Tobacco dependence syndrome Weight loss Surgical History History of coronary artery stent placement History of right-sided carotid endarterectomy Hx of CABG Social History Smoking Status: Former smoker alcohol intake: never substance use type: denies use current occupational status: other Travel in the last 8 weeks: None household members: spouse housing: house current occupational exposures/hazards: No caffeine: No ROS Obtained: Yes All systems reviewed & no additional complaints except as documented Phys
--- NOTE | 2022-06-11 00:21 | PC.NURSE ---
Patient irrigated with 2000 mL 0.9% NaCl. Tolerated well. Patient still has blood tinged urine output; however, clots have decreased to scant clots intermittently. Attending aware. States we will leave 3-way lama in place and patient will see Urologist this date at 0930. Education provided to patient and daughter at bedside.
--- NOTE | 2022-06-11 00:50 | PC.NURSE ---
Bladder scan for post CBI residual is 0mL
[2022-06-11 01:21] VITALS: BP 165/89; PULSE 87; RESP 16; TEMP 36.7; O2SAT 97
== END 2022-06-11 01:30 | disposition home or self-care (01) ==
PROVIDERS: Emergency Provider Emergency Medicine; PCP Internal Medicine Adolescent Medicine
DX: R31.9 Hematuria, unspecified (principal); R33.9 Retention of urine, unspecified
CPT/HCPCS: 51702; 80048; 81001; 85025; 85610; 85730; 87086; 96360; 96374; 99284; 99285; J0696

== ENCOUNTER 2023-01-18 04:35 | Emergency (ER) | payer OTHER, MEDICARE, SELFPAY ==
[2023-01-18 04:23] VITALS: BP 144/78; PULSE 61; O2SAT 100
[2023-01-18 04:30] VITALS: BP 135/78; PULSE 60; O2SAT 99
[2023-01-18 04:35] VITALS: BP 144/78; PULSE 67; RESP 20; TEMP 36.5; O2SAT 100; BMI 17.2
--- NOTE | 2023-01-18 04:43 | PC.NURSE ---
Patient reports that he needs to urinate. Provided urinal, patient states that he is unable to urinate with someone in the room. Educated patient for the need for supervision due to high fall risk. Offered to assist patient to use urinal in the bed, offered to assist patient with x2 assist to stand. Patient declined at this time.
--- NOTE | 2023-01-18 04:44 | PC.NURSE ---
in room talking with patient at this time.
--- NOTE | 2023-01-18 04:51 | HMH.EDGENADL ---
Discharge Plan Disposition Patient Disposition: Hospice - Home Condition: Fair Prescriptions Prescriptions: No Action clopidogrel 75 mg tablet 75 mg PO DAILY Qty: 90 1RF Patient Comments: TAKE 1 TABLET BY MOUTH EVERY DAY albuterol sulfate 90 mcg/actuation HFA aerosol inhaler 2 inh INHALATION Q8 PRN (Reason: Cough) Senna Plus 8.6-50 mg Capsule 1 tab-cap PO BID PRN (Reason: Constipation) quetiapine [Seroquel] 25 mg Tablet 25 mg PO TID ropinirole 1 mg Tablet 1 mg PO HS Rx Instructions: administer 1-3 hours before bedtime trazodone 50 mg Tablet 50 mg PO HS PRN (Reason: Sleep) Breztri Aerosphere 160-9-4.8 mcg/actuation Hfa Aerosol Inhaler 2 inh INHALATION BID tramadol 50 mg Tablet 50 mg PO BID PRN (Reason: Pain, Moderate) Activity Restrictions/Add. Instructions Additional Instructions/Restrictions: You were evaluated in the emergency department today. I recommend holding the ropinirole and seeing if symptoms improve. Please call and consult your hospice team regarding this. The hospice nurse flooring professional, Elzbieta, has asked that you all please call hospice today if any new concerns or issues develop, or should you need extra support at home right away. We are happy to help if any new concerns or issues arise. They have advised social work will begin working on placement on Thursday if you wish to proceed with this. Clinical Impressions Clinical Impression: Falls frequently Instructions Patient Instructions: How to Prevent Falls Discharge ED Provider: Callie Solo General Adult HPI General Chief complaint: Fall Stated complaint: FALL Time Seen by Provider: 01/18/23 04:40 Mode of Arrival: EMS Source of Information: Patient and EMS Limitations: No Limitations Description of Symptoms (Recalled from ER Triage Doc. by RN): EMS brings patient in tonight after an unwitnessed fall at home with unknown injury. Family states they noted dried blood to mouth. Patient does not indicate where he hit when he fell. States that he just get's off balance and can't catch himself. EMS reports that family reports that he has been falling more frequently and having episodes of confusion since and that the patient is on hospice care for end stage COPD. History of Present Illness HPI narrative: This patient is an 82-year-old male with a history of lung cancer, COPD, CAD status post CABG, TIA, mesenteric artery stenosis, carotid stenosis status post carotid endarterectomy, PAD, hypertension, and hyperlipidemia who is currently on hospice with fito presenting to the emergency department for evaluation with concern for an acute decline. They note that his ropinirole was increased on , and after taking it, he was weaker than usual, more somnolent, and began having frequent falls. They held his medications on Thursday, and he was much better that day. He was ambulatory, helping out with monotype caster. Last night (01/17), they did give him his home medications, and he was noted to have another acute decline with overall weakness, somnolence, and falls. Family notes that he has been off balance, more tired than usual, and he had a lot of difficulty getting him around the house, including to the bathroom. They note that he is very stubborn and resists any attempts at helping him, and they have advised him multiple times not to get out of bed, however they awoke this morning to him hitting the floor. Patient is alert and talkative and denies any injuries as a result of this fall. He states that his daughters just got all worked up. Patient denies any concerns or complaints at this time and states that he is currently feeling fine. No other issues noted as of late, such as fevers, cough, congestion, abdominal pain, vomiting, urinary symptoms, or other issues. Related Data Home Medications Medication Instructions Recorded Confirmed albuterol sulfate 90 mcg/actu
--- NOTE | 2023-01-18 04:55 | PC.NURSE ---
Called [facility] care navigators for Hospice Nurse real estate transaction manager at this time.
[2023-01-18 05:01] VITALS: BP 149/74; PULSE 57; O2SAT 99
--- NOTE | 2023-01-18 05:01 | PC.NURSE ---
o/p with PARMINDER Ruff from Hospice at this time.
--- NOTE | 2023-01-18 05:14 | PC.NURSE ---
in room talking with patient at this time.
--- NOTE | 2023-01-18 05:45 | PC.NURSE ---
Bed bath, pericare, clothing change performed at this time. Patient reluctant to allow staff to clean, hesitant to accept assistance. Family provided with patient belongings.
[2023-01-18 06:00] VITALS: BP 153/80; PULSE 57; RESP 21; TEMP 36.7; O2SAT 99
== END 2023-01-18 06:05 | disposition hospice, home (50) ==
PROVIDERS: Emergency Provider Emergency Medicine; PCP Internal Medicine Adolescent Medicine
DX: N18.6 End stage renal disease (principal); Z51.5 Encounter for palliative care; W19.XXXA Unspecified fall, initial encounter; R29.6 Repeated falls; I12.0 Hypertensive chronic kidney disease with stage 5 chronic kidney disease or end stage renal disease; F17.210 Nicotine dependence, cigarettes, uncomplicated; I65.23 Occlusion and stenosis of bilateral carotid arteries; I25.10 Atherosclerotic heart disease of native coronary artery without angina pectoris; E78.5 Hyperlipidemia, unspecified
CPT/HCPCS: 99283